=== PATIENT | female | born 1970 | race Caucasian/White ===

== ENCOUNTER → 2017-03-05 | Outpatient (CLI) | payer OTHER ==
[~2017-03-05] MED LIST: BUPR300T49 PO; CHOL500014 PO; KRIL1CAP5 PO; LEVO112T2 PO; LIOT25TA PO; MAGN300C PO; OMEP40CA6 PO; VITA1TAB19 PO
[2017-03-05 14:20] LABS: HEMOGLOBIN 12.9 g/dL (11.7-16.4)
[2017-03-05 14:33] LABS: ASPARTATE AMINO TRANSFERASE 22 U/L (15-37)
== END | disposition home or self-care (01) ==
LOC: LAB 13:54
PROVIDERS: ATTEND Internal Medicine Endocrinology, Diabetes & Metabolism
DX: E03.9 Hypothyroidism, unspecified (principal); R76.8 Other specified abnormal immunological findings in serum
CPT/HCPCS: 36415; 81003; 82040; 82565; 82570; 84156; 84439; 84443; 84450; 84460; 84481; 85025; 86160; 86225; 86235

== ENCOUNTER → 2017-06-02 | Outpatient (CLI) | payer OTHER ==
[2017-06-02 08:28] LABS: ASPARTATE AMINO TRANSFERASE 20 U/L (15-37); BLOOD UREA NITROGEN 12 mg/dL (7-18)
== END | disposition home or self-care (01) ==
LOC: LAB 08:00
PROVIDERS: ATTEND Family Medicine
DX: R53.83 Other fatigue (principal); E78.00 Pure hypercholesterolemia, unspecified
CPT/HCPCS: 36415; 80053; 80061; 82306; 84439; 84443; 84480; 85025

== ENCOUNTER 2017-06-05 17:36 | Emergency (ER) | payer OTHER ==
[~2017-06-05] VITALS: Ht 160 cm; Wt 59.0 kg
[2017-06-05] MEDS ORDERED: SODIUM CHLORIDE 0.9% 1,000 ML IV ONE (18:14)
[2017-06-05] MEDS ORDERED: SODIUM CHLORIDE FLUSH 10ML SYR IVF ONE (18:30)
[2017-06-05] MEDS ORDERED: HYDROmorphone 1 MG/ML, 1ML IVPush PRN (18:30)
[2017-06-05] MEDS ORDERED: ONDANSETRON 2MG/ML, 2ML IVPush ONE (18:30)
[2017-06-05] MEDS ORDERED: SODIUM CHLORIDE 0.9% 1,000ML IVBOLUS ONE ×2 (18:30→19:30)
[2017-06-05] MEDS ORDERED: ONDANSETRON 2MG/ML, 2ML ONE (18:36)
[2017-06-05] MEDS ORDERED: HYDROmorphone 1 MG/ML, 1ML ONE (18:36)
[2017-06-05 18:54] LABS: ASPARTATE AMINO TRANSFERASE 14 U/L (15-37); BLOOD UREA NITROGEN 17 mg/dL (7-18)
[2017-06-05 19:26] LABS: DIFF TOTAL CELLS COUNTED 100 CELL DIFF
[2017-06-05 19:29] LABS: LARGE PLATELETS 1+
[2017-06-05 19:30] LABS: VERIFY COUNTS? YES
[2017-06-05 20:07] VITALS: BP 100/60
== END 2017-06-05 20:13 | disposition home or self-care (01) ==
LOC: ED 19:17
DX: R10.84 Generalized abdominal pain (principal); G43.909 Migraine, unspecified, not intractable, without status migrainosus; Z90.49 Acquired absence of other specified parts of digestive tract
CPT/HCPCS: 36415; 70450; 74022; 80053; 81003; 83690; 84703; 85025; 96361; 96374; 96375; 99285; J1170; J2405; J7030

== ENCOUNTER → 2017-09-02 | Outpatient (CLI) | payer OTHER ==
[~2017-09-02] MED LIST changes: -CHOL500014 PO; +CHOL500045 PO; -LIOT25TA PO; +LIOT25TA10 PO
== END | disposition home or self-care (01) ==
LOC: LAB 08:16
PROVIDERS: ATTEND Internal Medicine Endocrinology, Diabetes & Metabolism
DX: E03.9 Hypothyroidism, unspecified (principal)
CPT/HCPCS: 36415; 82306; 84439; 84443; 84481

== ENCOUNTER → 2017-12-14 | Outpatient (CLI) | payer OTHER ==
[2017-12-14 10:32] LABS: FREE T4 (FREE THYROXINE) 1.13 ng/dL (0.76-1.46); THYROID STIMULATING HORMONE 0.337 mIU/L (0.358-3.740)
== END | disposition home or self-care (01) ==
LOC: LAB 09:58
PROVIDERS: ATTEND Internal Medicine Endocrinology, Diabetes & Metabolism
DX: E03.9 Hypothyroidism, unspecified (principal)
CPT/HCPCS: 36415; 84439; 84443; 84481

== ENCOUNTER → 2017-12-31 | Outpatient (CLI) | payer OTHER | END | disposition home or self-care (01) | LOC: LAB 10:57 | PROVIDERS: ATTEND Obstetrics & Gynecology Gynecology | DX: D39.11 Neoplasm of uncertain behavior of right ovary (principal) | CPT/HCPCS: 36415; 82105; 83615; 86304 ==

== ENCOUNTER → 2018-01-07 | Outpatient (CLI) | payer OTHER ==
[~2018-01-07] MED LIST changes: +ALPR0.25 PO; +DEXL60CA2 PO; +LAMO300T2 PO; +LEVO75TA PO
[2018-01-07 12:28] LABS: BASOPHILS # (AUTO) 0.03 x10^3/uL (0-0.1); BASOPHILS % (AUTO) 1 % (0-1); EOSINOPHILS # (AUTO) 0.13 x10^3/uL (0-0.4); EOSINOPHILS % (AUTO) 2 % (1-7); LYMPHOCYTES # (AUTO) 1.54 x10^3/uL (1-3.4); LYMPHOCYTES % (AUTO) 25 % (22-44); MD NO; MEAN CORPUSCULAR HGB CONC 33.5 g/dL (32.4-35.8); MEAN CORPUSCULAR VOLUME 98.5 fL (80-100); MEAN PLATELET VOLUME 9.5 fL (7.4-10.4); MONOCYTES # (AUTO) 0.48 x10^3/uL (0.2-0.8); MONOCYTES % (AUTO) 8 % (2-9); NEUTROPHILS # (AUTO) 3.88 x10^3/uL (1.8-6.8); NEUTROPHILS % (AUTO) 64 % (42-75); PLATELET COUNT 196 x10^3/uL (130-400); RED BLOOD COUNT 4.03 x10^6/uL (3.82-5.3); RED CELL DISTRIBUTION WIDTH 13.4 % (9.6-15.2)
[2018-01-07 12:32] LABS: INTERNATIONAL NORMALIZED RATIO 0.95 (0.93-1.1); PROTHROMBIN TIME 9.8 Seconds (9.6-11.5)
[2018-01-07 12:39] LABS: CALCIUM 8.9 mg/dL (8.5-10.1); CHLORIDE 105 mmol/L (98-107)
[2018-01-07 12:47] LABS: ALANINE AMINOTRANSFERASE 41 U/L (12-78); ALKALINE PHOSPHATASE 55 U/L (45-117); ANION GAP 5 mmol/L (5-15); BILIRUBIN,TOTAL 0.5 mg/dL (0.2-1.0); CREATININE 1.08 mg/dL (0.55-1.02); TOTAL PROTEIN 7.5 g/dL (6.4-8.2)
== END ==
LOC: STAR 11:17
PROVIDERS: ATTEND Specialist
DX: Z01.818 Encounter for other preprocedural examination (principal); R19.07 Generalized intra-abdominal and pelvic swelling, mass and lump
CPT/HCPCS: 36415; 71046; 80053; 84703; 85025; 85610; 85730; 93005

== ENCOUNTER → 2018-01-07 | Outpatient (CLI) | payer OTHER ==
[~2018-01-07] MED LIST changes: +OMNIPAQUE 350 MG/ML, 100ML BOTTLE ONE
== END | disposition home or self-care (01) ==
LOC: RAD 09:04
PROVIDERS: ATTEND Obstetrics & Gynecology Gynecology
DX: C56.9 Malignant neoplasm of unspecified ovary (principal); R19.00 Intra-abdominal and pelvic swelling, mass and lump, unspecified site; R97.1 Elevated cancer antigen 125 [CA 125]
CPT/HCPCS: 74177; Q9967

== ENCOUNTER 2018-01-09 17:43 | Inpatient (IN) | payer OTHER ==
[~2018-01-09] VITALS: Ht 160 cm; Wt 59.0 kg
[~2018-01-09 17:43] MED LIST changes: -OMNIPAQUE 350 MG/ML, 100ML BOTTLE ONE
[2018-01-09] MEDS ORDERED: GOLYTELY 4,000ML ORAL.SOL PO ONE (18:00)
[2018-01-09 18:19] VITALS: BP 115/77
[2018-01-09 19:07] VITALS: BP 110/67
[2018-01-09] MEDS: MORPHINE SULFATE 4 MG/ML, 1ML IVPush PRN ×3 (19:57→22:30)
[2018-01-09] MEDS: D5%-0.45NACL+KCL 20MEQ 1,000 ML IV SCH (19:57)
[2018-01-09] MEDS: ONDANSETRON 2MG/ML, 2ML IVPush PRN (23:59)
[2018-01-10 01:02] VITALS: BP 102/72
[2018-01-10] MEDS: D5%-0.45NACL+KCL 20MEQ 1,000 ML IV SCH ×2 (03:59→12:32)
[2018-01-10] MEDS ORDERED: morphine SULFATE 10 MG/ML, 1ML ONE (06:09)
[2018-01-10] MEDS: MORPHINE SULFATE 4 MG/ML, 1ML IVPush PRN ×2 (06:13→10:16)
[2018-01-10 07:25] VITALS: BP 101/63
[2018-01-10] MEDS: ONDANSETRON 2MG/ML, 2ML IVPush PRN ×2 (10:16→17:21)
[2018-01-10] MEDS ORDERED: ASA/APAP/ CAFFEINE TABLET PO PRN (11:00)
[2018-01-10] MEDS ORDERED: ACETAMINOPHEN 650 MG/20.3 ML UDC PO PRN (12:00)
[2018-01-10] MEDS ORDERED: ONDANSETRON 2MG/ML, 2ML IVPush ONE (12:00)
[2018-01-10 13:27] VITALS: BP 118/78
[2018-01-10] MEDS ORDERED: EPINEPHRINE 1 MG/ML, 1ML ONE (18:50)
[2018-01-10] MEDS ORDERED: BUPIVACAINE/PF 0.5% ONE (18:50)
[2018-01-10] MEDS ORDERED: HEPARIN 1,000 UNITS/ML, 10ML ONE (18:50)
[2018-01-10] MEDS ORDERED: LIDOCAINE 4%, 4 ML SYR/CANN TP ONE (18:58)
[2018-01-10] MEDS ORDERED: CEFOTETAN PMX 2GM/50ML 50 ML IVPB ONE (18:58)
[2018-01-10] MEDS ORDERED: PROPOFOL 10 MG/ML, 20ML ONE (18:58)
[2018-01-10] MEDS ORDERED: SUCCINYLCHOLINE 20 MG/ML, 10ML ONE (18:58)
[2018-01-10] MEDS ORDERED: ROCURONIUM 10 MG/ML,10ML ONE (18:58)
[2018-01-10] MEDS ORDERED: OXYcodone 5 MG/5 ML ORAL.SOL UDC PO PRN (20:00)
[2018-01-10] MEDS ORDERED: ACETAMINOPHEN 325 MG TABLET PO PRN (20:00)
[2018-01-10] MEDS ORDERED: ONDANSETRON 2MG/ML, 2ML IVPush PRN (20:00)
[2018-01-10] MEDS ORDERED: HYDROcodone/APAP 7.5-325MG/15ML UDC PO PRN (20:00)
[2018-01-10] MEDS ORDERED: MENING VAC A,C,Y,W-135 DIP/PF (MENACTRA AGES 2-55) 0.5 ML IM-VACC ONE (20:30)
[2018-01-10] MEDS ORDERED: **MANDATORY - MENING,PNEU,HAEMOPH- PICK 1 OF EACH MC PRN (20:30)
[2018-01-10] MEDS ORDERED: PNEUMOC 13-VALENT VACC, 0.5 ML IM-VACC ONE (20:30)
[2018-01-10] MEDS ORDERED: DIPHTHERIA-TETANUS ADULT 0.5ML IM-VACC ONE (20:30)
[2018-01-10] MEDS ORDERED: HAEMOPH B POLY CONJ-TET TOX/PF 10 MCG/0.5 ML INJ IM-VACC ONE (20:30)
[2018-01-10] MEDS ORDERED: FLU VACC QS2017-18 (36MOS+) UP/PF 0.5 ML IM-VACC ONE (20:30)
[2018-01-10] MEDS: HYDROmorphone 5 MG, BUPIVACAINE/PF 0.5%, 30ML 62.5 ML in SODIUM CHLORIDE 0.9% 182.5 ML EPIDCONT SCH (21:00)
[2018-01-10] MEDS ORDERED: MEASLES,MUMPS&RUBELLA VACC/PF 0.5 ML SQ-VACC ONE (21:00)
[2018-01-10] MEDS ORDERED: [UNRECOGNIZED DRUG - OTHER] IM ONE (21:00)
[2018-01-10] MEDS ORDERED: THROMBIN 5,000 UNIT VIAL TP ONE (21:10)
[2018-01-10] MEDS ORDERED: THROMBIN 20,000 UNIT VIAL TP ONE (21:37)
[2018-01-10] MEDS ORDERED: DO NOT GIVE MC SCH (22:30)
[2018-01-10] MEDS ORDERED: EPHEDRINE 50 MG/ML, 1ML IVPush PRN (22:30)
[2018-01-10] MEDS ORDERED: NALBUPHINE 10 MG/ML, 1ML IV PRN (22:30)
[2018-01-10] MEDS ORDERED: NALOXONE 0.4 MG/ML, 1ML IV PRN (22:30)
[2018-01-10 23:34] LABS: BASOPHILS % (AUTO) 0 % (0-1); EOSINOPHILS # (AUTO) 0.02 x10^3/uL (0-0.4); EOSINOPHILS % (AUTO) 0 % (1-7); LYMPHOCYTES # (AUTO) 0.63 x10^3/uL (1-3.4); LYMPHOCYTES % (AUTO) 10 % (22-44); MD NO; MEAN CORPUSCULAR HEMOGLOBIN 33.4 pg (27.0-34.8); MEAN CORPUSCULAR HGB CONC 33.9 g/dL (32.4-35.8); MEAN CORPUSCULAR VOLUME 98.6 fL (80-100); MEAN PLATELET VOLUME 9.5 fL (7.4-10.4); MONOCYTES # (AUTO) 0.22 x10^3/uL (0.2-0.8); MONOCYTES % (AUTO) 3 % (2-9); NEUTROPHILS # (AUTO) 5.68 x10^3/uL (1.8-6.8); NEUTROPHILS % (AUTO) 87 % (42-75); PLATELET COUNT 138 x10^3/uL (130-400); RED BLOOD COUNT 2.36 x10^6/uL (3.82-5.3); RED CELL DISTRIBUTION WIDTH 13.6 % (9.6-15.2)
[2018-01-10 23:39] LABS: INTERNATIONAL NORMALIZED RATIO 1.45 (0.93-1.1); PROTHROMBIN TIME 14.8 Seconds (9.6-11.5)
[2018-01-10] MEDS ORDERED: ALBUMIN HUMAN 5% 500 ML ONE (23:52)
[2018-01-11] MEDS ORDERED: D5%-0.45NACL+KCL 20MEQ 1,000 ML IV SCH
[2018-01-11] MEDS ORDERED: SODIUM CHLORIDE 0.9% 1,000ML IVBOLUS ONE (00:30)
[2018-01-11] MEDS: HYDROmorphone 5 MG, BUPIVACAINE/PF 0.5%, 30ML 62.5 ML in SODIUM CHLORIDE 0.9% 182.5 ML EPIDCONT SCH ×3 (00:30→22:35)
[2018-01-11 00:34] LABS: BASOPHILS # (AUTO) 0.01 x10^3/uL (0-0.1); BASOPHILS % (AUTO) 0 % (0-1); EOSINOPHILS % (AUTO) 0 % (1-7); LYMPHOCYTES # (AUTO) 0.79 x10^3/uL (1-3.4); LYMPHOCYTES % (AUTO) 13 % (22-44); MD NO; MEAN CORPUSCULAR HEMOGLOBIN 33.1 pg (27.0-34.8); MEAN CORPUSCULAR HGB CONC 33.7 g/dL (32.4-35.8); MEAN CORPUSCULAR VOLUME 98.1 fL (80-100); MEAN PLATELET VOLUME 8.8 fL (7.4-10.4); MONOCYTES # (AUTO) 0.23 x10^3/uL (0.2-0.8); MONOCYTES % (AUTO) 4 % (2-9); NEUTROPHILS # (AUTO) 5.15 x10^3/uL (1.8-6.8); NEUTROPHILS % (AUTO) 83 % (42-75); PLATELET COUNT 127 x10^3/uL (130-400); RED CELL DISTRIBUTION WIDTH 13.5 % (9.6-15.2)
[2018-01-11] MEDS ORDERED: FENTANYL PF 100 MCG/2ML ONE ×3 (00:34→01:44)
[2018-01-11] MEDS: FENTANYL PF 100 MCG/2ML IV PRN ×4 (00:35→01:46)
[2018-01-11 00:47] LABS: ALBUMIN 2.1 g/dL (3.4-5.0); ANION GAP 9 mmol/L (5-15); CALCIUM 6.1 mg/dL (8.5-10.1); CHLORIDE 113 mmol/L (98-107)
[2018-01-11 00:51] LABS: ALANINE AMINOTRANSFERASE 198 U/L (12-78); ALKALINE PHOSPHATASE 23 U/L (45-117); BILIRUBIN,TOTAL 0.4 mg/dL (0.2-1.0); CREATININE 0.89 mg/dL (0.55-1.02); TOTAL PROTEIN 3.4 g/dL (6.4-8.2)
[2018-01-11] MEDS ORDERED: CALCIUM GLUCONATE 4.6 MEQ in SODIUM CHLORIDE 0.9% 50 ML IV ONE (01:30)
[2018-01-11] MEDS ORDERED: MAGNESIUM SULFATE PMX 4GM/100M 100 ML IV ONE (01:30)
[2018-01-11] MEDS ORDERED: HYDROmorphone 2 MG/ML, 1ML ONE (01:55)
[2018-01-11] MEDS: HYDROmorphone 1 MG/ML, 1ML IV PRN ×2 (01:59→02:10)
[2018-01-11] MEDS ORDERED: ALBUMIN HUMAN 5% 500 ML IV ONE (02:00)
[2018-01-11] MEDS ORDERED: ONDANSETRON 2MG/ML, 2ML ONE (02:01)
[2018-01-11 02:45] VITALS: BP 93/56
[2018-01-11 07:28] VITALS: BP 82/47
[2018-01-11] MEDS ORDERED: KETOROLAC 30 MG/1 ML ONE (08:26)
[2018-01-11] MEDS: ONDANSETRON 2MG/ML, 2ML IVPush PRN ×3 (08:34→23:22)
[2018-01-11] MEDS: D5%-0.45NACL+KCL 20MEQ 1,000 ML IV SCH ×3 (09:14→23:22)
[2018-01-11] MEDS: KETOROLAC 30 MG/1 ML IVPush PRN ×3 (09:14→22:47)
[2018-01-11 09:37] LABS: ALANINE AMINOTRANSFERASE 221 U/L (12-78); ALBUMIN 2.7 g/dL (3.4-5.0); ANION GAP 5 mmol/L (5-15); CALCIUM 6.7 mg/dL (8.5-10.1); CHLORIDE 110 mmol/L (98-107); CREATININE 0.83 mg/dL (0.55-1.02)
[2018-01-11 09:39] LABS: ALKALINE PHOSPHATASE 22 U/L (45-117); BILIRUBIN,TOTAL 0.4 mg/dL (0.2-1.0); TOTAL PROTEIN 4.2 g/dL (6.4-8.2)
[2018-01-11] MEDS: ALBUMIN HUMAN 5% 500 ML IV SCH ×2 (10:45→20:26)
[2018-01-11] MEDS: MORPHINE SULFATE 4 MG/ML, 1ML IVPush PRN ×3 (11:30→23:22)
[2018-01-11 11:34] VITALS: BP 82/44
[2018-01-11] MEDS: FENTANYL PF 100 MCG/2ML EPIDPUSH PRN (13:57)
[2018-01-11 13:59] VITALS: BP 82/45
[2018-01-11 14:48] LABS: MEAN CORPUSCULAR HEMOGLOBIN 32.8 pg (27.0-34.8); MEAN CORPUSCULAR HGB CONC 33.2 g/dL (32.4-35.8); MEAN CORPUSCULAR VOLUME 98.9 fL (80-100); MEAN PLATELET VOLUME 9.9 fL (7.4-10.4); PLATELET COUNT 147 x10^3/uL (130-400); RED BLOOD COUNT 2.57 x10^6/uL (3.82-5.3)
[2018-01-11 14:57] LABS: BASOPHILS % (AUTO) 0 % (0-1); EOSINOPHILS % (AUTO) 0 % (1-7); LYMPHOCYTES # (AUTO) 0.42 x10^3/uL (1-3.4); LYMPHOCYTES % (AUTO) 5 % (22-44); MD NO; MONOCYTES # (AUTO) 0.27 x10^3/uL (0.2-0.8); MONOCYTES % (AUTO) 3 % (2-9); NEUTROPHILS # (AUTO) 7.11 x10^3/uL (1.8-6.8); NEUTROPHILS % (AUTO) 91 % (42-75)
[2018-01-11] MEDS ORDERED: PROCHLORPERAZINE 5 MG/ML, 2ML ONE (18:23)
[2018-01-11] MEDS ORDERED: PROCHLORPERAZINE 5 MG/ML, 2ML IVPush ONE (18:30)
[2018-01-11 20:00] VITALS: BP 92/49
[2018-01-11 23:14] VITALS: BP 101/56
[2018-01-12] VITALS (7 sets, daily range): BP systolic 93–101; BP diastolic 52–63
[2018-01-12] MEDS: FENTANYL PF 100 MCG/2ML EPIDPUSH PRN ×2 (02:20→06:44)
[2018-01-12] MEDS: ONDANSETRON 2MG/ML, 2ML IVPush PRN ×2 (04:58→16:28)
[2018-01-12] MEDS: KETOROLAC 30 MG/1 ML IVPush PRN ×4 (04:58→21:51)
[2018-01-12] MEDS: D5%-0.45NACL+KCL 20MEQ 1,000 ML IV SCH ×2 (05:03→16:28)
[2018-01-12] MEDS: MORPHINE SULFATE 4 MG/ML, 1ML IVPush PRN ×3 (05:36→20:35)
[2018-01-12 05:59] LABS: CHLORIDE 112 mmol/L (98-107)
[2018-01-12 06:08] LABS: ANION GAP 6 mmol/L (5-15); CALCIUM 7.1 mg/dL (8.5-10.1); CREATININE 0.73 mg/dL (0.55-1.02)
[2018-01-12 06:27] LABS: MEAN CORPUSCULAR HEMOGLOBIN 32.9 pg (27.0-34.8); MEAN CORPUSCULAR HGB CONC 33.3 g/dL (32.4-35.8); MEAN CORPUSCULAR VOLUME 98.9 fL (80-100); MEAN PLATELET VOLUME 9.9 fL (7.4-10.4); PLATELET COUNT 148 x10^3/uL (130-400); RED BLOOD COUNT 2.08 x10^6/uL (3.82-5.3); RED CELL DISTRIBUTION WIDTH 13.4 % (9.6-15.2)
[2018-01-12] MEDS: ALBUMIN HUMAN 5% 500 ML IV SCH (06:29)
[2018-01-12 06:46] LABS: BASOPHILS # (AUTO) 0.02 x10^3/uL (0-0.1); BASOPHILS % (AUTO) 0 % (0-1); EOSINOPHILS # (AUTO) 0.03 x10^3/uL (0-0.4); EOSINOPHILS % (AUTO) 0 % (1-7); LYMPHOCYTES # (AUTO) 0.83 x10^3/uL (1-3.4); LYMPHOCYTES % (AUTO) 10 % (22-44); MD SCAN; MONOCYTES # (AUTO) 0.61 x10^3/uL (0.2-0.8); MONOCYTES % (AUTO) 7 % (2-9); NEUTROPHILS # (AUTO) 6.86 x10^3/uL (1.8-6.8); NEUTROPHILS % (AUTO) 82 % (42-75)
[2018-01-12] MEDS: LAMOTRIGINE 200 MG TABLET PO SCH (08:04)
[2018-01-12] MEDS ORDERED: HYDROmorphone 1 MG/ML, 1ML EPIDPUSH PRN (10:00)
[2018-01-12] MEDS ORDERED: FENTANYL PF 100 MCG/2ML ONE (10:08)
[2018-01-12] MEDS: LIOTHYRONINE 25 MCG TABLET PO SCH (10:30)
[2018-01-12] MEDS ORDERED: DIPHENHYDRAMINE 25 MG CAPSULE PO ONE (10:30)
[2018-01-12] MEDS ORDERED: LEVOTHYROXINE 75 MCG TABLET ONE (10:48)
[2018-01-12] MEDS: LORazepam 2 MG/ML, 1ML IVPush PRN ×2 (12:13→18:35)
[2018-01-13] MEDS: MORPHINE SULFATE 4 MG/ML, 1ML IVPush PRN ×4 (00:25→20:41)
[2018-01-13] MEDS: LORazepam 2 MG/ML, 1ML IVPush PRN ×4 (00:25→18:26)
[2018-01-13] MEDS: HYDROmorphone 5 MG, BUPIVACAINE/PF 0.5%, 30ML 62.5 ML in SODIUM CHLORIDE 0.9% 182.5 ML EPIDCONT SCH (01:29)
[2018-01-13 02:00] VITALS: BP 106/62
[2018-01-13] MEDS: KETOROLAC 30 MG/1 ML IVPush PRN ×4 (03:30→22:18)
[2018-01-13] MEDS: FENTANYL PF 100 MCG/2ML EPIDPUSH PRN ×4 (03:58→12:41)
[2018-01-13] MEDS: LEVOTHYROXINE 75 MCG TABLET PO SCH (05:23)
[2018-01-13] MEDS: D5%-0.45NACL+KCL 20MEQ 1,000 ML IV SCH ×2 (05:23→17:05)
[2018-01-13 05:53] LABS: ANION GAP 4 mmol/L (5-15); CALCIUM 7.7 mg/dL (8.5-10.1); CHLORIDE 111 mmol/L (98-107); CREATININE 0.64 mg/dL (0.55-1.02)
[2018-01-13 06:03] LABS: BASOPHILS # (AUTO) 0.03 x10^3/uL (0-0.1); BASOPHILS % (AUTO) 0 % (0-1); EOSINOPHILS # (AUTO) 0.13 x10^3/uL (0-0.4); EOSINOPHILS % (AUTO) 2 % (1-7); LYMPHOCYTES # (AUTO) 0.54 x10^3/uL (1-3.4); LYMPHOCYTES % (AUTO) 6 % (22-44); MD NO; MEAN CORPUSCULAR HEMOGLOBIN 32.9 pg (27.0-34.8); MEAN CORPUSCULAR HGB CONC 34.1 g/dL (32.4-35.8); MEAN CORPUSCULAR VOLUME 96.4 fL (80-100); MEAN PLATELET VOLUME 8.8 fL (7.4-10.4); MONOCYTES # (AUTO) 0.67 x10^3/uL (0.2-0.8); MONOCYTES % (AUTO) 7 % (2-9); NEUTROPHILS # (AUTO) 7.77 x10^3/uL (1.8-6.8); NEUTROPHILS % (AUTO) 85 % (42-75); PLATELET COUNT 172 x10^3/uL (130-400); RED BLOOD COUNT 2.49 x10^6/uL (3.82-5.3); RED CELL DISTRIBUTION WIDTH 14.6 % (9.6-15.2)
[2018-01-13 08:47] VITALS: BP 115/71
[2018-01-13] MEDS: LIOTHYRONINE 25 MCG TABLET PO SCH (09:23)
[2018-01-13] MEDS: LAMOTRIGINE 200 MG TABLET PO SCH (09:24)
[2018-01-13 16:29] VITALS: BP 106/60
[2018-01-13 19:10] VITALS: BP 117/71
[2018-01-14] MEDS: D5%-0.45NACL+KCL 20MEQ 1,000 ML IV SCH ×3 (00:55→20:34)
[2018-01-14 01:07] VITALS: BP 114/67
[2018-01-14] MEDS: MORPHINE SULFATE 4 MG/ML, 1ML IVPush PRN ×4 (04:22→23:33)
[2018-01-14] MEDS: LEVOTHYROXINE 75 MCG TABLET PO SCH (05:00)
[2018-01-14] MEDS: LORazepam 2 MG/ML, 1ML IVPush PRN ×4 (05:00→19:30)
[2018-01-14 05:25] LABS: ANION GAP 5 mmol/L (5-15); CALCIUM 7.6 mg/dL (8.5-10.1); CHLORIDE 110 mmol/L (98-107); CREATININE 0.55 mg/dL (0.55-1.02)
[2018-01-14 05:38] LABS: BASOPHILS # (AUTO) 0.05 x10^3/uL (0-0.1); BASOPHILS % (AUTO) 1 % (0-1); EOSINOPHILS # (AUTO) 0.13 x10^3/uL (0-0.4); EOSINOPHILS % (AUTO) 2 % (1-7); LYMPHOCYTES # (AUTO) 0.74 x10^3/uL (1-3.4); LYMPHOCYTES % (AUTO) 9 % (22-44); MD NO; MEAN CORPUSCULAR HEMOGLOBIN 32.6 pg (27.0-34.8); MEAN CORPUSCULAR HGB CONC 34.2 g/dL (32.4-35.8); MEAN CORPUSCULAR VOLUME 95.5 fL (80-100); MEAN PLATELET VOLUME 8.8 fL (7.4-10.4); MONOCYTES # (AUTO) 0.56 x10^3/uL (0.2-0.8); MONOCYTES % (AUTO) 7 % (2-9); NEUTROPHILS # (AUTO) 6.75 x10^3/uL (1.8-6.8); NEUTROPHILS % (AUTO) 82 % (42-75); PLATELET COUNT 246 x10^3/uL (130-400); RED BLOOD COUNT 2.66 x10^6/uL (3.82-5.3); RED CELL DISTRIBUTION WIDTH 14.4 % (9.6-15.2)
[2018-01-14 07:00] VITALS: BP 153/74
[2018-01-14] MEDS: LIOTHYRONINE 25 MCG TABLET PO SCH (07:26)
[2018-01-14] MEDS: LAMOTRIGINE 200 MG TABLET PO SCH (07:26)
[2018-01-14] MEDS: FENTANYL PF 100 MCG/2ML EPIDPUSH PRN (07:37)
[2018-01-14] MEDS: HYDROmorphone 5 MG, BUPIVACAINE/PF 0.5%, 30ML 62.5 ML in SODIUM CHLORIDE 0.9% 182.5 ML EPIDCONT SCH (08:00)
[2018-01-14] MEDS: KETOROLAC 30 MG/1 ML IVPush PRN ×3 (09:14→23:33)
[2018-01-14] MEDS ORDERED: LORazepam 2 MG/ML, 1ML IVPush PRN (12:00)
[2018-01-14] MEDS: OXYcodone/APAP 7.5/325MG TABLET PO PRN ×3 (12:21→19:30)
[2018-01-14 12:50] VITALS: BP 112/78
[2018-01-14 18:58] VITALS: BP 111/75
[2018-01-15 00:37] VITALS: BP 101/70
[2018-01-15] MEDS: LORazepam 2 MG/ML, 1ML IVPush PRN ×4 (02:00→20:22)
[2018-01-15] MEDS: LEVOTHYROXINE 75 MCG TABLET PO SCH (04:34)
[2018-01-15] MEDS: MORPHINE SULFATE 4 MG/ML, 1ML IVPush PRN ×3 (04:34→16:55)
[2018-01-15] MEDS: LIOTHYRONINE 25 MCG TABLET PO SCH (04:34)
[2018-01-15 04:49] LABS: ANION GAP 6 mmol/L (5-15); CALCIUM 8.2 mg/dL (8.5-10.1); CHLORIDE 112 mmol/L (98-107); CREATININE 0.69 mg/dL (0.55-1.02)
[2018-01-15 04:55] LABS: BASOPHILS # (AUTO) 0.02 x10^3/uL (0-0.1); BASOPHILS % (AUTO) 0 % (0-1); EOSINOPHILS # (AUTO) 0.28 x10^3/uL (0-0.4); EOSINOPHILS % (AUTO) 5 % (1-7); LYMPHOCYTES # (AUTO) 0.78 x10^3/uL (1-3.4); LYMPHOCYTES % (AUTO) 13 % (22-44); MD NO; MEAN CORPUSCULAR HEMOGLOBIN 32.4 pg (27.0-34.8); MEAN CORPUSCULAR HGB CONC 33.4 g/dL (32.4-35.8); MEAN CORPUSCULAR VOLUME 96.8 fL (80-100); MEAN PLATELET VOLUME 8.1 fL (7.4-10.4); MONOCYTES # (AUTO) 0.69 x10^3/uL (0.2-0.8); MONOCYTES % (AUTO) 11 % (2-9); NEUTROPHILS # (AUTO) 4.31 x10^3/uL (1.8-6.8); NEUTROPHILS % (AUTO) 71 % (42-75); PLATELET COUNT 343 x10^3/uL (130-400); RED BLOOD COUNT 2.91 x10^6/uL (3.82-5.3); RED CELL DISTRIBUTION WIDTH 14.4 % (9.6-15.2)
[2018-01-15] MEDS: LAMOTRIGINE 200 MG TABLET PO SCH (05:00)
[2018-01-15] MEDS: OXYcodone/APAP 7.5/325MG TABLET PO PRN ×3 (06:35→18:23)
[2018-01-15 07:54] VITALS: BP 109/74
[2018-01-15] MEDS: D5%-0.45NACL+KCL 20MEQ 1,000 ML IV SCH ×2 (08:01→18:23)
[2018-01-15] MEDS: KETOROLAC 30 MG/1 ML IVPush PRN ×3 (11:29→23:31)
[2018-01-15 13:00] VITALS: BP 110/76
[2018-01-15 13:11] VITALS: BP 112/62
[2018-01-15] MEDS: HYDROmorphone 2MG TABLET PO PRN ×2 (18:46→22:37)
[2018-01-15 20:23] VITALS: BP 110/78
[2018-01-16] MEDS: HYDROmorphone 2MG TABLET PO PRN ×8 (00:56→21:20)
[2018-01-16 01:05] VITALS: BP 111/74
[2018-01-16] MEDS: D5%-0.45NACL+KCL 20MEQ 1,000 ML IV SCH ×3 (01:58→18:24)
[2018-01-16] MEDS: LORazepam 2 MG/ML, 1ML IVPush PRN ×3 (02:33→20:17)
[2018-01-16 04:51] LABS: BASOPHILS # (AUTO) 0.02 x10^3/uL (0-0.1); BASOPHILS % (AUTO) 0 % (0-1); EOSINOPHILS # (AUTO) 0.28 x10^3/uL (0-0.4); EOSINOPHILS % (AUTO) 4 % (1-7); LYMPHOCYTES # (AUTO) 0.76 x10^3/uL (1-3.4); LYMPHOCYTES % (AUTO) 11 % (22-44); MD NO; MEAN CORPUSCULAR HEMOGLOBIN 32.6 pg (27.0-34.8); MEAN CORPUSCULAR HGB CONC 33.7 g/dL (32.4-35.8); MEAN CORPUSCULAR VOLUME 96.7 fL (80-100); MEAN PLATELET VOLUME 8.1 fL (7.4-10.4); MONOCYTES # (AUTO) 0.87 x10^3/uL (0.2-0.8); MONOCYTES % (AUTO) 13 % (2-9); NEUTROPHILS # (AUTO) 4.74 x10^3/uL (1.8-6.8); NEUTROPHILS % (AUTO) 71 % (42-75); PLATELET COUNT 397 x10^3/uL (130-400); RED BLOOD COUNT 2.84 x10^6/uL (3.82-5.3)
[2018-01-16 05:00] LABS: ANION GAP 6 mmol/L (5-15); CALCIUM 8.2 mg/dL (8.5-10.1); CHLORIDE 111 mmol/L (98-107); CREATININE 0.75 mg/dL (0.55-1.02)
[2018-01-16] MEDS: KETOROLAC 30 MG/1 ML IVPush PRN (05:00)
[2018-01-16] MEDS: LEVOTHYROXINE 75 MCG TABLET PO SCH (05:00)
[2018-01-16 07:25] VITALS: BP 114/78
[2018-01-16] MEDS: LAMOTRIGINE 200 MG TABLET PO SCH (08:18)
[2018-01-16] MEDS: MORPHINE SULFATE 4 MG/ML, 1ML IVPush PRN ×3 (08:18→20:08)
[2018-01-16] MEDS: LIOTHYRONINE 25 MCG TABLET PO SCH (08:18)
[2018-01-16 12:54] VITALS: BP 121/74
[2018-01-16] MEDS ORDERED: KETOROLAC 30 MG/1 ML IVPush ONE (13:30)
[2018-01-16 20:00] VITALS: BP 109/73
[2018-01-17] MEDS: HYDROmorphone 2MG TABLET PO PRN ×3 (00:27→07:23)
[2018-01-17 01:19] VITALS: BP 114/77
[2018-01-17] MEDS: MORPHINE SULFATE 4 MG/ML, 1ML IVPush PRN ×6 (01:19→22:22)
[2018-01-17] MEDS: LORazepam 2 MG/ML, 1ML IVPush PRN ×4 (01:46→20:19)
[2018-01-17] MEDS: D5%-0.45NACL+KCL 20MEQ 1,000 ML IV SCH ×3 (03:45→20:19)
[2018-01-17 04:38] LABS: BASOPHILS # (AUTO) 0.02 x10^3/uL (0-0.1); BASOPHILS % (AUTO) 0 % (0-1); EOSINOPHILS # (AUTO) 0.32 x10^3/uL (0-0.4); EOSINOPHILS % (AUTO) 4 % (1-7); LYMPHOCYTES # (AUTO) 0.83 x10^3/uL (1-3.4); LYMPHOCYTES % (AUTO) 11 % (22-44); MD NO; MEAN CORPUSCULAR HEMOGLOBIN 32.5 pg (27.0-34.8); MEAN CORPUSCULAR HGB CONC 33.8 g/dL (32.4-35.8); MEAN CORPUSCULAR VOLUME 96.3 fL (80-100); MEAN PLATELET VOLUME 8.1 fL (7.4-10.4); MONOCYTES # (AUTO) 1.03 x10^3/uL (0.2-0.8); MONOCYTES % (AUTO) 13 % (2-9); NEUTROPHILS # (AUTO) 5.73 x10^3/uL (1.8-6.8); NEUTROPHILS % (AUTO) 72 % (42-75); PLATELET COUNT 465 x10^3/uL (130-400); RED BLOOD COUNT 2.87 x10^6/uL (3.82-5.3); RED CELL DISTRIBUTION WIDTH 14.1 % (9.6-15.2)
[2018-01-17 04:49] LABS: ANION GAP 6 mmol/L (5-15); CHLORIDE 109 mmol/L (98-107)
[2018-01-17] MEDS: LEVOTHYROXINE 75 MCG TABLET PO SCH (05:20)
[2018-01-17 07:45] VITALS: BP 107/72
[2018-01-17] MEDS: LAMOTRIGINE 200 MG TABLET PO SCH (07:57)
[2018-01-17] MEDS: LIOTHYRONINE 25 MCG TABLET PO SCH (07:57)
[2018-01-17] MEDS ORDERED: OXYcodone/APAP 10/325MG TABLET ONE (08:20)
[2018-01-17] MEDS: OXYcodone/APAP 10/325MG TABLET PO SCH ×4 (08:23→20:18)
[2018-01-17] MEDS ORDERED: OXYcodone/APAP 10/325MG TABLET PO PRN (08:30)
[2018-01-17 14:01] VITALS: BP 107/73
[2018-01-17 19:29] VITALS: BP_SYST 112; BP_SYST 135; BP_DIAS 70; BP_DIAS 85
[2018-01-18] MEDS: OXYcodone/APAP 10/325MG TABLET PO SCH ×6 (00:53→20:18)
[2018-01-18] MEDS: LORazepam 2 MG/ML, 1ML IVPush PRN ×4 (02:26→20:18)
[2018-01-18 04:02] VITALS: BP 94/53
[2018-01-18 04:25] LABS: BASOPHILS # (AUTO) 0.02 x10^3/uL (0-0.1); BASOPHILS % (AUTO) 0 % (0-1); EOSINOPHILS # (AUTO) 0.42 x10^3/uL (0-0.4); EOSINOPHILS % (AUTO) 5 % (1-7); LYMPHOCYTES # (AUTO) 1.29 x10^3/uL (1-3.4); LYMPHOCYTES % (AUTO) 16 % (22-44); MD NO; MEAN CORPUSCULAR HEMOGLOBIN 32.5 pg (27.0-34.8); MEAN CORPUSCULAR HGB CONC 33.3 g/dL (32.4-35.8); MEAN CORPUSCULAR VOLUME 97.5 fL (80-100); MEAN PLATELET VOLUME 7.8 fL (7.4-10.4); MONOCYTES # (AUTO) 1.18 x10^3/uL (0.2-0.8); MONOCYTES % (AUTO) 15 % (2-9); NEUTROPHILS # (AUTO) 4.95 x10^3/uL (1.8-6.8); NEUTROPHILS % (AUTO) 63 % (42-75); PLATELET COUNT 510 x10^3/uL (130-400); RED BLOOD COUNT 2.89 x10^6/uL (3.82-5.3); RED CELL DISTRIBUTION WIDTH 14.2 % (9.6-15.2)
[2018-01-18 04:36] LABS: ANION GAP 6 mmol/L (5-15); CALCIUM 8.3 mg/dL (8.5-10.1); CHLORIDE 108 mmol/L (98-107)
[2018-01-18 04:37] LABS: CREATININE 0.77 mg/dL (0.55-1.02)
[2018-01-18] MEDS: LEVOTHYROXINE 75 MCG TABLET PO SCH (04:52)
[2018-01-18] MEDS: D5%-0.45NACL+KCL 20MEQ 1,000 ML IV SCH ×3 (04:52→20:18)
[2018-01-18 07:06] VITALS: BP 96/63
[2018-01-18] MEDS: LIOTHYRONINE 25 MCG TABLET PO SCH (08:34)
[2018-01-18] MEDS: LAMOTRIGINE 200 MG TABLET PO SCH (08:35)
[2018-01-18] MEDS ORDERED: HYDROCORTISONE CRM 1%, 30GM TP PRN (10:00)
[2018-01-18 13:10] VITALS: BP 103/68
[2018-01-18 19:44] VITALS: BP 96/59
[2018-01-18] MEDS: MORPHINE SULFATE 4 MG/ML, 1ML IVPush PRN (23:29)
[2018-01-19] MEDS: OXYcodone/APAP 10/325MG TABLET PO SCH ×6 (00:15→20:20)
[2018-01-19 01:18] VITALS: BP 104/62
[2018-01-19] MEDS: LORazepam 2 MG/ML, 1ML IVPush PRN ×4 (02:19→22:20)
[2018-01-19] MEDS: D5%-0.45NACL+KCL 20MEQ 1,000 ML IV SCH ×3 (04:20→20:21)
[2018-01-19] MEDS: LEVOTHYROXINE 75 MCG TABLET PO SCH (06:37)
[2018-01-19 08:02] VITALS: BP 94/58
[2018-01-19] MEDS: LIOTHYRONINE 25 MCG TABLET PO SCH (09:24)
[2018-01-19] MEDS: LAMOTRIGINE 200 MG TABLET PO SCH (09:25)
[2018-01-19 13:48] VITALS: BP 96/63
[2018-01-19 19:42] VITALS: BP 100/62
[2018-01-20] MEDS: OXYcodone/APAP 10/325MG TABLET PO SCH ×6 (00:15→21:35)
[2018-01-20 01:35] VITALS: BP 98/63
[2018-01-20] MEDS: LORazepam 2 MG/ML, 1ML IVPush PRN ×3 (04:48→21:35)
[2018-01-20] MEDS: LEVOTHYROXINE 75 MCG TABLET PO SCH (04:48)
[2018-01-20] MEDS: D5%-0.45NACL+KCL 20MEQ 1,000 ML IV SCH ×2 (04:50→16:14)
[2018-01-20] MEDS: LIOTHYRONINE 25 MCG TABLET PO SCH (08:29)
[2018-01-20] MEDS: LAMOTRIGINE 200 MG TABLET PO SCH (08:29)
[2018-01-20 08:30] VITALS: BP 98/67
[2018-01-20 14:30] VITALS: BP 91/57
[2018-01-20 19:37] VITALS: BP 95/63
[2018-01-20] MEDS: MORPHINE SULFATE 4 MG/ML, 1ML IVPush PRN (19:37)
[2018-01-21 01:06] VITALS: BP 102/67
[2018-01-21] MEDS: OXYcodone/APAP 10/325MG TABLET PO SCH ×6 (01:36→21:35)
[2018-01-21] MEDS: D5%-0.45NACL+KCL 20MEQ 1,000 ML IV SCH ×3 (01:36→15:38)
[2018-01-21] MEDS: LORazepam 2 MG/ML, 1ML IVPush PRN ×3 (05:14→19:35)
[2018-01-21] MEDS: LEVOTHYROXINE 75 MCG TABLET PO SCH (05:14)
[2018-01-21] MEDS: LAMOTRIGINE 200 MG TABLET PO SCH (08:14)
[2018-01-21] MEDS: LIOTHYRONINE 25 MCG TABLET PO SCH (08:14)
[2018-01-21 08:27] VITALS: BP 109/72
[2018-01-21 14:01] VITALS: BP 96/60
[2018-01-21 19:00] VITALS: BP 111/76
[2018-01-22 00:36] VITALS: BP 102/67
[2018-01-22] MEDS: OXYcodone/APAP 10/325MG TABLET PO SCH ×4 (01:37→13:17)
[2018-01-22] MEDS: LORazepam 2 MG/ML, 1ML IVPush PRN ×2 (01:38→10:27)
[2018-01-22] MEDS: LEVOTHYROXINE 75 MCG TABLET PO SCH (05:29)
[2018-01-22] MEDS: D5%-0.45NACL+KCL 20MEQ 1,000 ML IV SCH (05:30)
[2018-01-22 08:26] VITALS: BP 96/68
[2018-01-22 08:36] LABS: BASOPHILS # (AUTO) 0.04 x10^3/uL (0-0.1); BASOPHILS % (AUTO) 1 % (0-1); EOSINOPHILS % (AUTO) 2 % (1-7); LYMPHOCYTES # (AUTO) 1.66 x10^3/uL (1-3.4); LYMPHOCYTES % (AUTO) 20 % (22-44); MD NO; MEAN CORPUSCULAR HEMOGLOBIN 31.4 pg (27.0-34.8); MEAN CORPUSCULAR HGB CONC 32.6 g/dL (32.4-35.8); MEAN CORPUSCULAR VOLUME 96.5 fL (80-100); MEAN PLATELET VOLUME 7.8 fL (7.4-10.4); MONOCYTES % (AUTO) 12 % (2-9); NEUTROPHILS # (AUTO) 5.56 x10^3/uL (1.8-6.8); NEUTROPHILS % (AUTO) 66 % (42-75); PLATELET COUNT 860 x10^3/uL (130-400); RED BLOOD COUNT 3.42 x10^6/uL (3.82-5.3); RED CELL DISTRIBUTION WIDTH 13.9 % (9.6-15.2)
[2018-01-22] MEDS: LAMOTRIGINE 200 MG TABLET PO SCH (08:46)
[2018-01-22] MEDS: LIOTHYRONINE 25 MCG TABLET PO SCH (08:46)
[2018-01-22 08:49] LABS: ANION GAP 5 mmol/L (5-15); CHLORIDE 104 mmol/L (98-107)
[2018-01-22 13:44] VITALS: BP 94/62
[2018-02-02] MEDS ORDERED: TORADOL PO (16:05)
[2018-02-02] MEDS ORDERED: ESOM40CA PO (16:05)
[2018-02-02] MEDS ORDERED: OXYC-307 PO (16:05)
== END 2018-01-22 16:20 | disposition home or self-care (01) | DRG 737 ==
LOC: 3NW 17:43
PROVIDERS: ADMIT Specialist; ATTEND Specialist
PROC: 0UT90ZZ Resection of Uterus, Open Approach (ICD-10-PCS; principal; 2018-01-09)
PROC: 0UB70ZZ Excision of Bilateral Fallopian Tubes, Open Approach (ICD-10-PCS; 2018-01-09)
PROC: 0UB20ZZ Excision of Bilateral Ovaries, Open Approach (ICD-10-PCS; 2018-01-09)
PROC: 0UQF0ZZ Repair Cul-de-sac, Open Approach (ICD-10-PCS; 2018-01-09)
PROC: 0DTU0ZZ Resection of Omentum, Open Approach (ICD-10-PCS; 2018-01-09)
PROC: 07BC0ZZ Excision of Pelvis Lymphatic, Open Approach (ICD-10-PCS; 2018-01-09)
PROC: 07TP0ZZ Resection of Spleen, Open Approach (ICD-10-PCS; 2018-01-09)
PROC: 0DTJ0ZZ Resection of Appendix, Open Approach (ICD-10-PCS; 2018-01-09)
PROC: 0FB20ZZ Excision of Left Lobe Liver, Open Approach (ICD-10-PCS; 2018-01-09)
PROC: 30233N1 Transfusion of Nonautologous Red Blood Cells into Peripheral Vein, Percutaneous Approach (ICD-10-PCS; 2018-01-09)
PROC: 0BBT0ZZ Excision of Diaphragm, Open Approach (ICD-10-PCS; 2018-01-09)
PROC: 0JQC0ZZ Repair Pelvic Region Subcutaneous Tissue and Fascia, Open Approach (ICD-10-PCS; 2018-01-09)
PROC: 0DBN0ZZ Excision of Sigmoid Colon, Open Approach (ICD-10-PCS; 2018-01-09)
PROC: 0WQF0ZZ Repair Abdominal Wall, Open Approach (ICD-10-PCS; 2018-01-09)
DX: C56.9 Malignant neoplasm of unspecified ovary (principal); C78.6 Secondary malignant neoplasm of retroperitoneum and peritoneum; R18.8 Other ascites; D62 Acute posthemorrhagic anemia; K56.7 Ileus, unspecified; K76.89 Other specified diseases of liver; E03.9 Hypothyroidism, unspecified; L23.9 Allergic contact dermatitis, unspecified cause; Z90.710 Acquired absence of both cervix and uterus; Z90.81 Acquired absence of spleen; Z23 Encounter for immunization
CPT/HCPCS: 36415; 71045; 74018; 80048; 80053; 82570; 83735; 85025; 85610; 86850; 86900; 86923; 88302; 88305; 88307; 88331; 90648; 90686; 90714; 90734; C1729; J0171; J0610; J1170; J1644; J1885; J2250; J2405; J2704; J3010; J3490; P9045; C1751; C1765; G0009; J0330; J0780; J2060; J3475; J3480; J7030; J7050; P9016; Q0163; S0074

== ENCOUNTER → 2018-01-31 | Outpatient (CLI) | payer OTHER ==
[~2018-01-31] MED LIST changes: +ESOM40CA PO; +OXYC-307 PO; +TORADOL PO
== END ==
LOC: RAD 07:56
PROVIDERS: ATTEND Specialist
DX: N13.70 Vesicoureteral-reflux, unspecified (principal); Z98.890 Other specified postprocedural states
CPT/HCPCS: 74430

== ENCOUNTER → 2018-02-04 | Outpatient (CLI) | payer OTHER ==
[2018-02-04 11:32] LABS: MICROSCOPIC INDICATED
[2018-02-04 11:38] LABS: MEAN CORPUSCULAR HEMOGLOBIN 31.6 pg (27.0-34.8); MEAN CORPUSCULAR HGB CONC 33.5 g/dL (32.4-35.8); MEAN CORPUSCULAR VOLUME 94.4 fL (80-100); MEAN PLATELET VOLUME 7.8 fL (7.4-10.4); PLATELET COUNT 988 x10^3/uL (130-400); RED BLOOD COUNT 2.89 x10^6/uL (3.82-5.3); RED CELL DISTRIBUTION WIDTH 14.5 % (9.6-15.2)
[2018-02-04 11:41] LABS: ALANINE AMINOTRANSFERASE 30 U/L (12-78); ALBUMIN 2.3 g/dL (3.4-5.0); ANION GAP 6 mmol/L (5-15); CALCIUM 8.5 mg/dL (8.5-10.1); CHLORIDE 102 mmol/L (98-107)
[2018-02-04 11:43] LABS: ALKALINE PHOSPHATASE 116 U/L (45-117); BILIRUBIN,TOTAL 0.2 mg/dL (0.2-1.0); TOTAL PROTEIN 6.8 g/dL (6.4-8.2)
[2018-02-04 12:14] LABS: MD YES
[2018-02-04 12:21] LABS: LYMPH#(MANUAL) 1.17 x10^3/uL (1-3.4); LYMPHS% (MANUAL) 7 % (22-44); METAMYELOCYTES# (MANUAL) 0.17 x10^3/uL (0-0); METAMYELOCYTES% (MANUAL) 1 % (0-1); MONOS% (MANUAL) 6 % (2-9); SEG#(MANUAL) 14.36 x10^3/uL (1.8-6.8); SEGS% (MANUAL) 86 % (42-75)
[2018-02-04 12:22] LABS: <PLATELET ESTIMATE> INCREASED; <PLT MORPHOLOGY> NORMAL PLT MORPH
[2018-02-04 12:24] LABS: POLYCHROMASIA 1+
== END | disposition home or self-care (01) ==
LOC: CFH 10:21
PROVIDERS: ATTEND Specialist
DX: R22.42 Localized swelling, mass and lump, left lower limb (principal); M79.605 Pain in left leg
CPT/HCPCS: 36415; 80053; 81001; 85025; 87040; 87077; 87086; 87186

== ENCOUNTER → 2018-03-29 | Outpatient (CLI) | payer OTHER ==
[~2018-03-29] MED LIST changes: +ACET-1600 PO; +DOCU-131 PO; +IBUP-1221 PO; +METO10TA82 PO; +OMNIPAQUE 350 MG/ML, 100ML BOTTLE ONE; +ONDA4TAB10 PO; +PROC10TA78 PO; +VENL37.52 PO
== END | disposition home or self-care (01) ==
LOC: RAD 14:35
PROVIDERS: ATTEND Specialist
DX: R06.02 Shortness of breath (principal); R07.9 Chest pain, unspecified
CPT/HCPCS: 71275; Q9967

== ENCOUNTER → 2018-05-02 | Outpatient (CLI) | payer OTHER ==
[~2018-05-02] MED LIST changes: -OMNIPAQUE 350 MG/ML, 100ML BOTTLE ONE
[2018-05-02 13:12] LABS: MEAN CORPUSCULAR HEMOGLOBIN 30.8 pg (27.0-34.8); MEAN CORPUSCULAR HGB CONC 33.1 g/dL (32.4-35.8); MEAN PLATELET VOLUME 8.9 fL (7.4-10.4); PLATELET COUNT 339 x10^3/uL (130-400); RED BLOOD COUNT 3.63 x10^6/uL (3.82-5.3); RED CELL DISTRIBUTION WIDTH 20.8 % (9.6-15.2)
[2018-05-02 13:28] LABS: MD YES
[2018-05-02 13:31] LABS: EOS#(MANUAL) 0.07 x10^3/uL (0.0-0.4); EOS% (MANUAL) 2 % (1-7); LYMPHS% (MANUAL) 65 % (22-44); SEG#(MANUAL) 0.96 x10^3/uL (1.8-6.8); SEGS% (MANUAL) 29 % (42-75)
[2018-05-02 13:32] LABS: ANISOCYTOSIS 1+; HOWELL-JOLLY BODIES 1+; LYMPH#(MANUAL) 2.15 x10^3/uL (1-3.4); MICROCYTOSIS 1+; MONOS#(MANUAL) 0.13 x10^3/uL (0.3-2.7); MONOS% (MANUAL) 4 % (2-9)
[2018-05-02 13:33] LABS: <PLATELET ESTIMATE> ADEQUATE; <PLT MORPHOLOGY> NORMAL PLT MORPH; TARGET CELLS 1+
== END | disposition home or self-care (01) ==
LOC: LAB 12:21
PROVIDERS: ATTEND Registered Nurse
DX: C56.9 Malignant neoplasm of unspecified ovary (principal)
CPT/HCPCS: 36415; 85025

== ENCOUNTER → 2018-05-09 | Outpatient (CLI) | payer OTHER ==
[2018-05-09 12:13] LABS: MD YES
[2018-05-09 12:15] LABS: MEAN CORPUSCULAR HEMOGLOBIN 30.8 pg (27.0-34.8); MEAN CORPUSCULAR HGB CONC 32.7 g/dL (32.4-35.8); MEAN CORPUSCULAR VOLUME 94.2 fL (80-100); MEAN PLATELET VOLUME 7.9 fL (7.4-10.4); PLATELET COUNT 412 x10^3/uL (130-400); RED CELL DISTRIBUTION WIDTH 21.2 % (9.6-15.2)
[2018-05-09 12:20] LABS: ANISOCYTOSIS 1+; EOS#(MANUAL) 0.04 x10^3/uL (0.0-0.4); EOS% (MANUAL) 1 % (1-7); LYMPH#(MANUAL) 2.44 x10^3/uL (1-3.4); LYMPHS% (MANUAL) 66 % (22-44); MICROCYTOSIS 1+; MONOS#(MANUAL) 0.78 x10^3/uL (0.3-2.7); MONOS% (MANUAL) 21 % (2-9); SEG#(MANUAL) 0.44 x10^3/uL (1.8-6.8); SEGS% (MANUAL) 12 % (42-75)
[2018-05-09 12:21] LABS: <PLATELET ESTIMATE> ADEQUATE; <PLT MORPHOLOGY> NORMAL PLT MORPH
== END | disposition home or self-care (01) ==
LOC: LAB 11:06
PROVIDERS: ATTEND Specialist
DX: Z51.11 Encounter for antineoplastic chemotherapy (principal); C56.9 Malignant neoplasm of unspecified ovary
CPT/HCPCS: 36415; 85025

== ENCOUNTER → 2018-05-12 | Outpatient (CLI) | payer OTHER | END | disposition home or self-care (01) | LOC: CFH 10:33 | PROVIDERS: ATTEND Obstetrics & Gynecology Gynecology | DX: Z12.31 Encounter for screening mammogram for malignant neoplasm of breast (principal) | CPT/HCPCS: 77063; 77067 ==

== ENCOUNTER → 2018-05-23 | Outpatient (CLI) | payer OTHER ==
[2018-05-23 12:55] LABS: MICROSCOPIC NOT IND
[2018-05-23 13:03] LABS: BASOPHILS % (AUTO) 0 % (0-1); CULTURE INDICATED? NO; EOSINOPHILS # (AUTO) 0.11 x10^3/uL (0-0.4); EOSINOPHILS % (AUTO) 3 % (1-7); HCT (SEDRATE) 35.3 % (34.6-47.8); LYMPHOCYTES # (AUTO) 1.45 x10^3/uL (1-3.4); LYMPHOCYTES % (AUTO) 43 % (22-44); MD NO; MEAN CORPUSCULAR HEMOGLOBIN 30.9 pg (27.0-34.8); MEAN CORPUSCULAR HGB CONC 32.7 g/dL (32.4-35.8); MEAN CORPUSCULAR VOLUME 94.5 fL (80-100); MEAN PLATELET VOLUME 9.5 fL (7.4-10.4); MONOCYTES # (AUTO) 0.16 x10^3/uL (0.2-0.8); MONOCYTES % (AUTO) 5 % (2-9); NEUTROPHILS # (AUTO) 1.68 x10^3/uL (1.8-6.8); NEUTROPHILS % (AUTO) 50 % (42-75); PLATELET COUNT 158 x10^3/uL (130-400); RED BLOOD COUNT 3.74 x10^6/uL (3.82-5.3)
[2018-05-23 13:04] LABS: ALANINE AMINOTRANSFERASE 30 U/L (12-78); ALBUMIN 3.6 g/dL (3.4-5.0); ANION GAP 5 mmol/L (5-15); C-REACTIVE PROTEIN, QUANT 0.05 mg/dL (0.02-0.49); CALCIUM 8.9 mg/dL (8.5-10.1); CHLORIDE 103 mmol/L (98-107)
[2018-05-23 13:06] LABS: ALKALINE PHOSPHATASE 42 U/L (45-117); BILIRUBIN,TOTAL 0.4 mg/dL (0.2-1.0); TOTAL PROTEIN 6.8 g/dL (6.4-8.2)
[2018-05-23 13:16] LABS: PROTEIN/CREATININE RATIO,URINE < 179 (0-200); TOTAL PROTEIN,URINE RANDOM < 5 mg/dL (0-12)
== END | disposition home or self-care (01) ==
LOC: LAB 12:28
PROVIDERS: ATTEND Physician Assistant
DX: Z51.11 Encounter for antineoplastic chemotherapy (principal); C56.9 Malignant neoplasm of unspecified ovary; M76.50 Patellar tendinitis, unspecified knee; M25.50 Pain in unspecified joint
CPT/HCPCS: 36415; 80053; 81003; 82570; 84156; 85025; 85651; 86140; 86160

== ENCOUNTER → 2018-06-06 | Outpatient (CLI) | payer OTHER ==
[2018-06-06 11:16] LABS: ALANINE AMINOTRANSFERASE 30 U/L (12-78); ALBUMIN 3.7 g/dL (3.4-5.0); ANION GAP 6 mmol/L (5-15); CALCIUM 9.1 mg/dL (8.5-10.1); CHLORIDE 108 mmol/L (98-107); CREATININE 0.95 mg/dL (0.55-1.02)
[2018-06-06 11:18] LABS: ALKALINE PHOSPHATASE 50 U/L (45-117); BILIRUBIN,TOTAL 0.2 mg/dL (0.2-1.0); TOTAL PROTEIN 7.3 g/dL (6.4-8.2)
[2018-06-06 11:24] LABS: MEAN CORPUSCULAR HEMOGLOBIN 31.4 pg (27.0-34.8); MEAN CORPUSCULAR HGB CONC 32.6 g/dL (32.4-35.8); MEAN CORPUSCULAR VOLUME 96.3 fL (80-100); MEAN PLATELET VOLUME 8.5 fL (7.4-10.4); PLATELET COUNT 293 x10^3/uL (130-400); RED BLOOD COUNT 3.92 x10^6/uL (3.82-5.3); RED CELL DISTRIBUTION WIDTH 20.6 % (9.6-15.2)
[2018-06-06 11:28] LABS: FREE T4 (FREE THYROXINE) 1.15 ng/dL (0.76-1.46); THYROID STIMULATING HORMONE 0.502 mIU/L (0.358-3.740)
[2018-06-06 11:32] LABS: MICROSCOPIC AUTO
[2018-06-06 12:30] LABS: MD YES
[2018-06-06 12:38] LABS: BAND#(MANUAL) 0.07 x10^3/uL; BANDS%(MANUAL) 2 % (0-7); EOS% (MANUAL) 8 % (1-7); LYMPHS% (MANUAL) 46 % (22-44); MONOS#(MANUAL) 0.22 x10^3/uL (0.3-2.7); MONOS% (MANUAL) 6 % (2-9); SEG#(MANUAL) 1.41 x10^3/uL (1.8-6.8); SEGS% (MANUAL) 38 % (42-75)
[2018-06-06 12:39] LABS: <PLATELET ESTIMATE> ADEQUATE; ANISOCYTOSIS 1+; HOWELL-JOLLY BODIES 1+
[2018-06-06 12:40] LABS: <PLT MORPHOLOGY> NORMAL PLT MORPH
== END | disposition home or self-care (01) ==
LOC: LAB 10:42
PROVIDERS: ATTEND Internal Medicine Endocrinology, Diabetes & Metabolism
DX: C56.9 Malignant neoplasm of unspecified ovary (principal); R97.1 Elevated cancer antigen 125 [CA 125]; E03.9 Hypothyroidism, unspecified
CPT/HCPCS: 36415; 80053; 81001; 83735; 84100; 84156; 84439; 84443; 84481; 85025; 86304

== ENCOUNTER → 2018-06-13 | Outpatient (CLI) | payer OTHER ==
[2018-06-13 12:55] LABS: MEAN CORPUSCULAR HEMOGLOBIN 32.1 pg (27.0-34.8); MEAN CORPUSCULAR HGB CONC 33.5 g/dL (32.4-35.8); MEAN CORPUSCULAR VOLUME 95.8 fL (80-100); MEAN PLATELET VOLUME 8.6 fL (7.4-10.4); PLATELET COUNT 241 x10^3/uL (130-400); RED BLOOD COUNT 3.58 x10^6/uL (3.82-5.3); RED CELL DISTRIBUTION WIDTH 20.4 % (9.6-15.2)
[2018-06-13 12:56] LABS: MD YES
[2018-06-13 13:29] LABS: BASOS#(MANUAL) 0.07 x10^3/uL (0-0.1); BASOS% (MANUAL) 2 % (0-1); EOS#(MANUAL) 0.11 x10^3/uL (0.0-0.4); EOS% (MANUAL) 3 % (1-7); LYMPH#(MANUAL) 1.94 x10^3/uL (1-3.4); LYMPHS% (MANUAL) 54 % (22-44); MONOS#(MANUAL) 0.11 x10^3/uL (0.3-2.7); MONOS% (MANUAL) 3 % (2-9); SEG#(MANUAL) 1.37 x10^3/uL (1.8-6.8); SEGS% (MANUAL) 38 % (42-75)
[2018-06-13 13:31] LABS: ANISOCYTOSIS 1+
[2018-06-13 13:32] LABS: <PLATELET ESTIMATE> ADEQUATE; <PLT MORPHOLOGY> NORMAL PLT MORPH
== END | disposition home or self-care (01) ==
LOC: LAB 12:40
PROVIDERS: ATTEND Specialist
DX: Z51.11 Encounter for antineoplastic chemotherapy (principal); C56.9 Malignant neoplasm of unspecified ovary
CPT/HCPCS: 36415; 85025

== ENCOUNTER → 2018-06-27 | Outpatient (CLI) | payer OTHER ==
[2018-06-27 12:42] LABS: MEAN CORPUSCULAR HEMOGLOBIN 32.5 pg (27.0-34.8); MEAN CORPUSCULAR HGB CONC 33.6 g/dL (32.4-35.8); MEAN CORPUSCULAR VOLUME 96.7 fL (80-100); MEAN PLATELET VOLUME 8.1 fL (7.4-10.4); PLATELET COUNT 283 x10^3/uL (130-400); RED BLOOD COUNT 3.81 x10^6/uL (3.82-5.3); RED CELL DISTRIBUTION WIDTH 20.8 % (9.6-15.2)
[2018-06-27 12:43] LABS: MD YES
[2018-06-27 12:46] LABS: ALANINE AMINOTRANSFERASE 30 U/L (12-78); ALBUMIN 3.9 g/dL (3.4-5.0); ANION GAP 6 mmol/L (5-15); CALCIUM 9.4 mg/dL (8.5-10.1); CHLORIDE 106 mmol/L (98-107)
[2018-06-27 12:47] LABS: ALKALINE PHOSPHATASE 49 U/L (45-117); BILIRUBIN,TOTAL 0.2 mg/dL (0.2-1.0); CREATININE 0.94 mg/dL (0.55-1.02); TOTAL PROTEIN 7.6 g/dL (6.4-8.2)
[2018-06-27 12:59] LABS: CREATININE,URINE RANDOM < 13.00 mg/dL; PROTEIN/CREATININE RATIO,URINE < 385 (0-200); TOTAL PROTEIN,URINE RANDOM < 5 mg/dL (0-12)
[2018-06-27 13:03] LABS: ANISOCYTOSIS 1+; EOS#(MANUAL) 0.04 x10^3/uL (0.0-0.4); EOS% (MANUAL) 1 % (1-7); LYMPH#(MANUAL) 2.13 x10^3/uL (1-3.4); LYMPHS% (MANUAL) 56 % (22-44); MONOS#(MANUAL) 0.53 x10^3/uL (0.3-2.7); MONOS% (MANUAL) 14 % (2-9); SEGS% (MANUAL) 29 % (42-75)
[2018-06-27 13:04] LABS: <PLATELET ESTIMATE> ADEQUATE; <PLT MORPHOLOGY> NORMAL PLT MORPH
== END | disposition home or self-care (01) ==
LOC: LAB 12:09
PROVIDERS: ATTEND Registered Nurse Maternal Newborn
DX: Z51.11 Encounter for antineoplastic chemotherapy (principal); C56.9 Malignant neoplasm of unspecified ovary; E83.42 Hypomagnesemia
CPT/HCPCS: 36415; 80053; 82570; 83735; 84100; 84156; 85025; 86304

== ENCOUNTER → 2018-07-18 | Outpatient (CLI) | payer OTHER ==
[2018-07-18 13:16] LABS: MEAN CORPUSCULAR HGB CONC 33.4 g/dL (32.4-35.8); MEAN CORPUSCULAR VOLUME 98.7 fL (80-100); MEAN PLATELET VOLUME 8.6 fL (7.4-10.4); PLATELET COUNT 395 x10^3/uL (130-400); RED BLOOD COUNT 3.72 x10^6/uL (3.82-5.3); RED CELL DISTRIBUTION WIDTH 21.3 % (9.6-15.2)
[2018-07-18 13:20] LABS: MICROSCOPIC AUTO
[2018-07-18 13:21] LABS: CULTURE INDICATED? YES
[2018-07-18 13:24] LABS: ALBUMIN 3.1 g/dL (3.4-5.0); ANION GAP 4 mmol/L (5-15); CALCIUM 8.6 mg/dL (8.5-10.1); CHLORIDE 106 mmol/L (98-107)
[2018-07-18 13:34] LABS: PROTEIN/CREATININE RATIO,URINE < 91 (0-200); TOTAL PROTEIN,URINE RANDOM < 5 mg/dL (0-12)
[2018-07-18 13:35] LABS: ALANINE AMINOTRANSFERASE 38 U/L (12-78); ALKALINE PHOSPHATASE 43 U/L (45-117); BILIRUBIN,TOTAL 0.3 mg/dL (0.2-1.0); CREATININE 1.02 mg/dL (0.55-1.02); FREE T4 (FREE THYROXINE) 1.11 ng/dL (0.76-1.46); THYROID STIMULATING HORMONE 0.618 mIU/L (0.358-3.740); TOTAL PROTEIN 6.3 g/dL (6.4-8.2)
[2018-07-18 13:45] LABS: MD YES
[2018-07-18 14:02] LABS: BAND#(MANUAL) 0.08 x10^3/uL; BANDS%(MANUAL) 1 % (0-7); BASOS#(MANUAL) 0.08 x10^3/uL (0-0.1); BASOS% (MANUAL) 1 % (0-1); EOS#(MANUAL) 2.24 x10^3/uL (0.0-0.4); EOS% (MANUAL) 27 % (1-7); LYMPH#(MANUAL) 1.99 x10^3/uL (1-3.4); LYMPHS% (MANUAL) 24 % (22-44); MONOS#(MANUAL) 1.25 x10^3/uL (0.3-2.7); MONOS% (MANUAL) 15 % (2-9); REACTIVE LYMPHS # (MANUAL) 0.42 x10^3/uL (0-0); REACTIVE LYMPHS % (MANUAL) 5 % (0-0); SEG#(MANUAL) 2.24 x10^3/uL (1.8-6.8); SEGS% (MANUAL) 27 % (42-75)
[2018-07-18 14:03] LABS: <PLATELET ESTIMATE> ADEQUATE; <PLT MORPHOLOGY> NORMAL PLT MORPH; ANISOCYTOSIS 1+
== END | disposition home or self-care (01) ==
LOC: LAB 12:49
PROVIDERS: ATTEND Physician Assistant
DX: Z51.11 Encounter for antineoplastic chemotherapy (principal); C56.9 Malignant neoplasm of unspecified ovary; E83.42 Hypomagnesemia; D72.829 Elevated white blood cell count, unspecified
CPT/HCPCS: 36415; 80053; 81001; 82570; 83735; 84100; 84156; 84439; 84443; 84481; 85025; 86304; 87086

== ENCOUNTER → 2018-08-09 | Outpatient (CLI) | payer OTHER ==
[~2018-08-09] MED LIST changes: +LAMO200T49 PO; +OMEG1CAP23 PO
[2018-08-09 15:52] LABS: ALBUMIN 3.6 g/dL (3.4-5.0); ANION GAP 5 mmol/L (5-15); CALCIUM 8.8 mg/dL (8.5-10.1); CHLORIDE 108 mmol/L (98-107)
[2018-08-09 16:01] LABS: ALANINE AMINOTRANSFERASE 43 U/L (12-78); ALKALINE PHOSPHATASE 45 U/L (45-117); BILIRUBIN,TOTAL 0.2 mg/dL (0.2-1.0); CREATININE 0.94 mg/dL (0.55-1.02); FREE T4 (FREE THYROXINE) 1.04 ng/dL (0.76-1.46); THYROID STIMULATING HORMONE 0.623 mIU/L (0.358-3.740); TOTAL PROTEIN 6.7 g/dL (6.4-8.2)
[2018-08-09 16:10] LABS: MEAN CORPUSCULAR HEMOGLOBIN 32.6 pg (27.0-34.8); MEAN CORPUSCULAR HGB CONC 32.8 g/dL (32.4-35.8); MEAN CORPUSCULAR VOLUME 99.4 fL (80-100); MEAN PLATELET VOLUME 9.3 fL (7.4-10.4); PLATELET COUNT 324 x10^3/uL (130-400); RED BLOOD COUNT 3.68 x10^6/uL (3.82-5.3); RED CELL DISTRIBUTION WIDTH 19.1 % (9.6-15.2)
[2018-08-09 16:34] LABS: MICROSCOPIC NOT IND
[2018-08-09 16:49] LABS: PROTEIN/CREATININE RATIO,URINE < 144 (0-200); TOTAL PROTEIN,URINE RANDOM < 5 mg/dL (0-12)
[2018-08-09 17:15] LABS: MD YES
[2018-08-09 17:19] LABS: BASOS#(MANUAL) 0.06 x10^3/uL (0-0.1); BASOS% (MANUAL) 1 % (0-1); EOS#(MANUAL) 1.28 x10^3/uL (0.0-0.4); EOS% (MANUAL) 20 % (1-7); LYMPH#(MANUAL) 1.98 x10^3/uL (1-3.4); LYMPHS% (MANUAL) 31 % (22-44); MONOS#(MANUAL) 0.77 x10^3/uL (0.3-2.7); MONOS% (MANUAL) 12 % (2-9); SEGS% (MANUAL) 36 % (42-75)
[2018-08-09 17:20] LABS: ANISOCYTOSIS 1+; POLYCHROMASIA 1+
[2018-08-09 17:21] LABS: <PLATELET ESTIMATE> ADEQUATE; <PLT MORPHOLOGY> NORMAL PLT MORPH
== END | disposition home or self-care (01) ==
LOC: LAB 15:12
PROVIDERS: ATTEND Specialist
DX: C56.9 Malignant neoplasm of unspecified ovary (principal); D72.829 Elevated white blood cell count, unspecified; E83.42 Hypomagnesemia; R97.1 Elevated cancer antigen 125 [CA 125]
CPT/HCPCS: 36415; 80053; 81003; 82570; 83735; 84100; 84156; 84439; 84443; 84481; 85025; 86304

== ENCOUNTER → 2018-08-22 | Outpatient (CLI) | payer OTHER | END | disposition home or self-care (01) | LOC: CFH 15:31 | PROVIDERS: ATTEND Family Medicine | DX: M19.071 Primary osteoarthritis, right ankle and foot (principal); M72.2 Plantar fascial fibromatosis ==

== ENCOUNTER → 2018-08-30 | Outpatient (CLI) | payer OTHER ==
[2018-08-30 14:35] LABS: FREE T4 (FREE THYROXINE) 1.25 ng/dL (0.76-1.46); THYROID STIMULATING HORMONE 0.688 mIU/L (0.358-3.740)
== END | disposition home or self-care (01) ==
LOC: LAB 13:59
PROVIDERS: ATTEND Internal Medicine
DX: E55.9 Vitamin D deficiency, unspecified (principal); E03.9 Hypothyroidism, unspecified
CPT/HCPCS: 36415; 82306; 84439; 84443; 84480; 84482

== ENCOUNTER → 2018-09-19 | Outpatient (CLI) | payer OTHER ==
[2018-09-19 11:06] LABS: MICROSCOPIC NOT IND
[2018-09-19 11:18] LABS: ALANINE AMINOTRANSFERASE 40 U/L (12-78); ALBUMIN 3.8 g/dL (3.4-5.0); ANION GAP 7 mmol/L (5-15); CALCIUM 8.6 mg/dL (8.5-10.1); CHLORIDE 107 mmol/L (98-107); CREATININE 0.88 mg/dL (0.55-1.02)
[2018-09-19 11:20] LABS: ALKALINE PHOSPHATASE 43 U/L (45-117); BILIRUBIN,TOTAL 0.3 mg/dL (0.2-1.0)
[2018-09-19 11:25] LABS: MEAN CORPUSCULAR HEMOGLOBIN 34.5 pg (27.0-34.8); MEAN CORPUSCULAR HGB CONC 33.9 g/dL (32.4-35.8); MEAN CORPUSCULAR VOLUME 101.8 fL (80-100); PLATELET COUNT 325 x10^3/uL (130-400); RED BLOOD COUNT 3.75 x10^6/uL (3.82-5.3); RED CELL DISTRIBUTION WIDTH 15.5 % (9.6-15.2)
[2018-09-19 11:42] LABS: MD YES
[2018-09-19 11:44] LABS: EOS% (MANUAL) 15 % (1-7); MONOS#(MANUAL) 0.37 x10^3/uL (0.3-2.7); MONOS% (MANUAL) 5 % (2-9)
[2018-09-19 11:45] LABS: <PLATELET ESTIMATE> ADEQUATE; <PLT MORPHOLOGY> NORMAL PLT MORPH; ANISOCYTOSIS 1+
[2018-09-19 11:46] LABS: LYMPH#(MANUAL) 2.48 x10^3/uL (1-3.4); LYMPHS% (MANUAL) 34 % (22-44); SEG#(MANUAL) 3.36 x10^3/uL (1.8-6.8); SEGS% (MANUAL) 46 % (42-75)
== END | disposition home or self-care (01) ==
LOC: LAB 10:42
PROVIDERS: ATTEND Physician Assistant
DX: Z00.6 Encounter for examination for normal comparison and control in clinical research program (principal); C56.9 Malignant neoplasm of unspecified ovary; E83.42 Hypomagnesemia
CPT/HCPCS: 36415; 80053; 81003; 82570; 83735; 84100; 84156; 85025; 86304

== ENCOUNTER → 2018-10-10 | Outpatient (CLI) | payer OTHER ==
[2018-10-10 11:29] LABS: ALANINE AMINOTRANSFERASE 42 U/L (12-78); ALBUMIN 4.1 g/dL (3.4-5.0); ANION GAP 6 mmol/L (5-15); CALCIUM 9.3 mg/dL (8.5-10.1); CHLORIDE 107 mmol/L (98-107); MEAN CORPUSCULAR HEMOGLOBIN 34.5 pg (27.0-34.8); MEAN CORPUSCULAR HGB CONC 33.8 g/dL (32.4-35.8); MEAN CORPUSCULAR VOLUME 101.9 fL (80-100); MEAN PLATELET VOLUME 8.7 fL (7.4-10.4); PLATELET COUNT 324 x10^3/uL (130-400); RED BLOOD COUNT 4.09 x10^6/uL (3.82-5.3); RED CELL DISTRIBUTION WIDTH 15.4 % (9.6-15.2)
[2018-10-10 11:38] LABS: ALKALINE PHOSPHATASE 49 U/L (45-117); BILIRUBIN,TOTAL 0.4 mg/dL (0.2-1.0); CREATININE 0.98 mg/dL (0.55-1.02); FREE T4 (FREE THYROXINE) 1.18 ng/dL (0.76-1.46); THYROID STIMULATING HORMONE 0.776 mIU/L (0.358-3.740); TOTAL PROTEIN 7.5 g/dL (6.4-8.2)
[2018-10-10 12:07] LABS: MD YES
[2018-10-10 12:09] LABS: <PLATELET ESTIMATE> ADEQUATE; ANISOCYTOSIS 1+; BAND#(MANUAL) 0.11 x10^3/uL; BANDS%(MANUAL) 2 % (0-7); EOS#(MANUAL) 1.01 x10^3/uL (0.0-0.4); EOS% (MANUAL) 19 % (1-7); LYMPHS% (MANUAL) 34 % (22-44); MONOS#(MANUAL) 0.53 x10^3/uL (0.3-2.7); MONOS% (MANUAL) 10 % (2-9); SEG#(MANUAL) 1.86 x10^3/uL (1.8-6.8); SEGS% (MANUAL) 35 % (42-75)
== END | disposition home or self-care (01) ==
LOC: LAB 11:04
PROVIDERS: ATTEND Registered Nurse Maternal Newborn
DX: C56.9 Malignant neoplasm of unspecified ovary (principal); E83.42 Hypomagnesemia
CPT/HCPCS: 36415; 80053; 83735; 84100; 84439; 84443; 84481; 85025; 86304

== ENCOUNTER → 2018-10-31 | Outpatient (CLI) | payer OTHER ==
[2018-10-31 10:14] LABS: MICROSCOPIC NOT IND
[2018-10-31 10:26] LABS: ALANINE AMINOTRANSFERASE 39 U/L (12-78); ALBUMIN 4.1 g/dL (3.4-5.0); ANION GAP 7 mmol/L (5-15); CALCIUM 8.9 mg/dL (8.5-10.1); CHLORIDE 105 mmol/L (98-107); CREATININE 0.98 mg/dL (0.55-1.02)
[2018-10-31 10:28] LABS: ALKALINE PHOSPHATASE 51 U/L (45-117); BILIRUBIN,TOTAL 0.3 mg/dL (0.2-1.0); TOTAL PROTEIN 7.5 g/dL (6.4-8.2)
[2018-10-31 10:31] LABS: MEAN CORPUSCULAR HEMOGLOBIN 33.7 pg (27.0-34.8); MEAN CORPUSCULAR HGB CONC 32.8 g/dL (32.4-35.8); MEAN CORPUSCULAR VOLUME 102.8 fL (80-100); MEAN PLATELET VOLUME 9.1 fL (7.4-10.4); PLATELET COUNT 293 x10^3/uL (130-400); RED BLOOD COUNT 4.02 x10^6/uL (3.82-5.3)
[2018-10-31 10:48] LABS: ANISOCYTOSIS 1+; BASOPHILS # (AUTO) 0.02 x10^3/uL (0-0.1); BASOPHILS % (AUTO) 0 % (0-1); EOSINOPHILS # (AUTO) 0.31 x10^3/uL (0-0.4); EOSINOPHILS % (AUTO) 4 % (1-7); LYMPHOCYTES # (AUTO) 1.87 x10^3/uL (1-3.4); LYMPHOCYTES % (AUTO) 24 % (22-44); MD MORPH REVIEW ONLY; MONOCYTES # (AUTO) 0.68 x10^3/uL (0.2-0.8); MONOCYTES % (AUTO) 9 % (2-9); NEUTROPHILS # (AUTO) 4.81 x10^3/uL (1.8-6.8); NEUTROPHILS % (AUTO) 63 % (42-75); SCHISTOCYTES 1+
[2018-10-31 10:49] LABS: <PLATELET ESTIMATE> ADEQUATE; <PLT MORPHOLOGY> NORMAL PLT MORPH
== END | disposition home or self-care (01) ==
LOC: LAB 09:52
PROVIDERS: ATTEND Internal Medicine
DX: C56.9 Malignant neoplasm of unspecified ovary (principal); R76.8 Other specified abnormal immunological findings in serum
CPT/HCPCS: 36415; 80053; 81003; 82550; 83516; 83735; 84100; 84156; 85025; 86038; 86160; 86225; 86235; 86255; 86256; 86304; 86376; 86431

== ENCOUNTER → 2018-11-23 | Outpatient (CLI) | payer OTHER ==
[2018-11-23 09:54] LABS: ALANINE AMINOTRANSFERASE 37 U/L (12-78); CHLORIDE 105 mmol/L (98-107)
[2018-11-23 10:03] LABS: ALBUMIN 4.2 g/dL (3.4-5.0); ALKALINE PHOSPHATASE 55 U/L (45-117); ANION GAP 7 mmol/L (5-15); BILIRUBIN,TOTAL 0.3 mg/dL (0.2-1.0); CALCIUM 9.3 mg/dL (8.5-10.1); CREATININE 0.92 mg/dL (0.55-1.02); FREE T4 (FREE THYROXINE) 0.99 ng/dL (0.76-1.46); TOTAL PROTEIN 7.7 g/dL (6.4-8.2)
[2018-11-23 11:41] LABS: MEAN CORPUSCULAR HGB CONC 33.3 g/dL (32.4-35.8); MEAN CORPUSCULAR VOLUME 102.1 fL (80-100); MEAN PLATELET VOLUME 8.6 fL (7.4-10.4); PLATELET COUNT 323 x10^3/uL (130-400); RED BLOOD COUNT 4.37 x10^6/uL (3.82-5.3)
[2018-11-23 11:42] LABS: MD YES
[2018-11-23 11:44] LABS: ANISOCYTOSIS 1+; EOS#(MANUAL) 0.23 x10^3/uL (0.0-0.4); EOS% (MANUAL) 4 % (1-7); LYMPH#(MANUAL) 2.17 x10^3/uL (1-3.4); LYMPHS% (MANUAL) 38 % (22-44); MONOS#(MANUAL) 0.68 x10^3/uL (0.3-2.7); MONOS% (MANUAL) 12 % (2-9); SEG#(MANUAL) 2.62 x10^3/uL (1.8-6.8); SEGS% (MANUAL) 46 % (42-75)
[2018-11-23 11:45] LABS: <PLATELET ESTIMATE> ADEQUATE; <PLT MORPHOLOGY> NORMAL PLT MORPH; TARGET CELLS 1+
== END | disposition home or self-care (01) ==
LOC: LAB 09:30
PROVIDERS: ATTEND Physician Assistant
DX: Z51.11 Encounter for antineoplastic chemotherapy (principal); C56.9 Malignant neoplasm of unspecified ovary
CPT/HCPCS: 36415; 80053; 83735; 84100; 84439; 84443; 84481; 85025; 86304

== ENCOUNTER → 2018-12-13 | Outpatient (CLI) | payer OTHER ==
[2018-12-13 12:23] LABS: MEAN CORPUSCULAR HEMOGLOBIN 34.5 pg (27.0-34.8); MEAN CORPUSCULAR HGB CONC 34.2 g/dL (32.4-35.8); MEAN CORPUSCULAR VOLUME 100.8 fL (80-100); MEAN PLATELET VOLUME 8.7 fL (7.4-10.4); PLATELET COUNT 290 x10^3/uL (130-400); RED BLOOD COUNT 4.23 x10^6/uL (3.82-5.3); RED CELL DISTRIBUTION WIDTH 14.9 % (9.6-15.2)
[2018-12-13 12:32] LABS: CHLORIDE 104 mmol/L (98-107)
[2018-12-13 12:41] LABS: ALANINE AMINOTRANSFERASE 35 U/L (12-78); ALBUMIN 4.1 g/dL (3.4-5.0); ALKALINE PHOSPHATASE 55 U/L (45-117); ANION GAP 3 mmol/L (5-15); BILIRUBIN,TOTAL 0.3 mg/dL (0.2-1.0); CALCIUM 9.8 mg/dL (8.5-10.1); CREATININE 0.95 mg/dL (0.55-1.02); TOTAL PROTEIN 7.3 g/dL (6.4-8.2)
[2018-12-13 12:54] LABS: BASOPHILS # (AUTO) 0.01 x10^3/uL (0-0.1); BASOPHILS % (AUTO) 0 % (0-1); EOSINOPHILS # (AUTO) 0.16 x10^3/uL (0-0.4); EOSINOPHILS % (AUTO) 2 % (1-7); LYMPHOCYTES # (AUTO) 1.55 x10^3/uL (1-3.4); LYMPHOCYTES % (AUTO) 23 % (22-44); MD SCAN; MONOCYTES # (AUTO) 0.84 x10^3/uL (0.2-0.8); MONOCYTES % (AUTO) 12 % (2-9); NEUTROPHILS # (AUTO) 4.32 x10^3/uL (1.8-6.8); NEUTROPHILS % (AUTO) 63 % (42-75)
== END | disposition home or self-care (01) ==
LOC: LAB 12:00
PROVIDERS: ATTEND Physician Assistant
DX: Z51.11 Encounter for antineoplastic chemotherapy (principal); C56.9 Malignant neoplasm of unspecified ovary
CPT/HCPCS: 36415; 80053; 83735; 84100; 85025; 86304

== ENCOUNTER → 2019-01-24 | Outpatient (CLI) | payer OTHER ==
[2019-01-24 11:49] LABS: BASOPHILS # (AUTO) 0.03 x10^3/uL (0-0.1); BASOPHILS % (AUTO) 0 % (0-1); EOSINOPHILS # (AUTO) 0.75 x10^3/uL (0-0.4); EOSINOPHILS % (AUTO) 11 % (1-7); LYMPHOCYTES % (AUTO) 28 % (22-44); MD NO; MEAN CORPUSCULAR HGB CONC 33.5 g/dL (32.4-35.8); MEAN CORPUSCULAR VOLUME 101.4 fL (80-100); MEAN PLATELET VOLUME 8.3 fL (7.4-10.4); MONOCYTES # (AUTO) 0.83 x10^3/uL (0.2-0.8); MONOCYTES % (AUTO) 12 % (2-9); NEUTROPHILS # (AUTO) 3.55 x10^3/uL (1.8-6.8); NEUTROPHILS % (AUTO) 50 % (42-75); PLATELET COUNT 315 x10^3/uL (130-400); RED BLOOD COUNT 4.27 x10^6/uL (3.82-5.3)
[2019-01-24 12:00] LABS: ALBUMIN 4.1 g/dL (3.4-5.0); ANION GAP 4 mmol/L (5-15); CALCIUM 9.6 mg/dL (8.5-10.1); CHLORIDE 105 mmol/L (98-107)
[2019-01-24 12:03] LABS: ALANINE AMINOTRANSFERASE 39 U/L (12-78); ALKALINE PHOSPHATASE 57 U/L (45-117); BILIRUBIN,TOTAL 0.5 mg/dL (0.2-1.0); CREATININE 0.99 mg/dL (0.55-1.02); TOTAL PROTEIN 7.6 g/dL (6.4-8.2)
[2019-01-24 12:15] LABS: MICROSCOPIC NOT IND
[2019-01-24 12:22] LABS: PROTEIN/CREATININE RATIO,URINE < 165 (0-200); TOTAL PROTEIN,URINE RANDOM < 5 mg/dL (0-12)
== END | disposition home or self-care (01) ==
LOC: LAB 11:26
PROVIDERS: ATTEND Physician Assistant
DX: Z51.11 Encounter for antineoplastic chemotherapy (principal); C56.9 Malignant neoplasm of unspecified ovary; E83.42 Hypomagnesemia
CPT/HCPCS: 36415; 80053; 81003; 82570; 83735; 84156; 85025; 86304

== ENCOUNTER → 2019-02-13 | Outpatient (CLI) | payer OTHER ==
[2019-02-13 11:27] LABS: MICROSCOPIC NOT IND
[2019-02-13 11:29] LABS: BASOPHILS # (AUTO) 0.03 x10^3/uL (0-0.1); BASOPHILS % (AUTO) 0 % (0-1); EOSINOPHILS % (AUTO) 15 % (1-7); LYMPHOCYTES # (AUTO) 2.35 x10^3/uL (1-3.4); LYMPHOCYTES % (AUTO) 29 % (22-44); MD NO; MEAN CORPUSCULAR HEMOGLOBIN 33.9 pg (27.0-34.8); MEAN CORPUSCULAR VOLUME 102.5 fL (80-100); MEAN PLATELET VOLUME 8.5 fL (7.4-10.4); MONOCYTES # (AUTO) 0.76 x10^3/uL (0.2-0.8); MONOCYTES % (AUTO) 9 % (2-9); NEUTROPHILS # (AUTO) 3.72 x10^3/uL (1.8-6.8); NEUTROPHILS % (AUTO) 46 % (42-75); PLATELET COUNT 350 x10^3/uL (130-400); RED BLOOD COUNT 4.16 x10^6/uL (3.82-5.3); RED CELL DISTRIBUTION WIDTH 15.6 % (9.6-15.2)
[2019-02-13 12:09] LABS: CHLORIDE 107 mmol/L (98-107)
[2019-02-13 12:17] LABS: ALANINE AMINOTRANSFERASE 42 U/L (12-78); ALBUMIN 4.1 g/dL (3.4-5.0); ALKALINE PHOSPHATASE 57 U/L (45-117); ANION GAP 5 mmol/L (5-15); BILIRUBIN,TOTAL 0.3 mg/dL (0.2-1.0); CALCIUM 9.2 mg/dL (8.5-10.1); CREATININE 1.01 mg/dL (0.55-1.02); TOTAL PROTEIN 7.1 g/dL (6.4-8.2)
[2019-02-13 14:00] LABS: PROTEIN/CREATININE RATIO,URINE < 321 (0-200); TOTAL PROTEIN,URINE RANDOM < 5 mg/dL (0-12)
== END | disposition home or self-care (01) ==
LOC: LAB 11:05
PROVIDERS: ATTEND Physician Assistant
DX: Z51.11 Encounter for antineoplastic chemotherapy (principal); C56.9 Malignant neoplasm of unspecified ovary; E83.42 Hypomagnesemia
CPT/HCPCS: 36415; 80053; 81003; 82570; 83735; 84156; 85025; 86304

== ENCOUNTER → 2019-03-06 | Outpatient (CLI) | payer SELFPAY ==
[2019-03-06 11:32] LABS: MEAN CORPUSCULAR HEMOGLOBIN 34.8 pg (27.0-34.8); MEAN CORPUSCULAR HGB CONC 33.6 g/dL (32.4-35.8); MEAN CORPUSCULAR VOLUME 103.5 fL (80-100); MEAN PLATELET VOLUME 8.3 fL (7.4-10.4); PLATELET COUNT 340 x10^3/uL (130-400); RED BLOOD COUNT 4.03 x10^6/uL (3.82-5.3); RED CELL DISTRIBUTION WIDTH 14.5 % (9.6-15.2)
[2019-03-06 11:42] LABS: ALANINE AMINOTRANSFERASE 38 U/L (12-78); ALBUMIN 3.9 g/dL (3.4-5.0); ANION GAP 5 mmol/L (5-15); CALCIUM 8.6 mg/dL (8.5-10.1); CHLORIDE 104 mmol/L (98-107); CREATININE 0.93 mg/dL (0.55-1.02)
[2019-03-06 11:45] LABS: ALKALINE PHOSPHATASE 60 U/L (45-117); BILIRUBIN,TOTAL 0.4 mg/dL (0.2-1.0)
[2019-03-06 11:49] LABS: PROTEIN/CREATININE RATIO,URINE < 215 (0-200); TOTAL PROTEIN,URINE RANDOM < 5 mg/dL (0-12)
[2019-03-06 11:51] LABS: BASOPHILS # (AUTO) 0.01 x10^3/uL (0-0.1); BASOPHILS % (AUTO) 0 % (0-1); EOSINOPHILS # (AUTO) 2.09 x10^3/uL (0-0.4); EOSINOPHILS % (AUTO) 20 % (1-7); LYMPHOCYTES # (AUTO) 2.73 x10^3/uL (1-3.4); LYMPHOCYTES % (AUTO) 26 % (22-44); MD SCAN; MONOCYTES # (AUTO) 0.73 x10^3/uL (0.2-0.8); MONOCYTES % (AUTO) 7 % (2-9); NEUTROPHILS # (AUTO) 4.96 x10^3/uL (1.8-6.8); NEUTROPHILS % (AUTO) 47 % (42-75)
== END | disposition home or self-care (01) ==
LOC: LAB 11:12
PROVIDERS: ATTEND Physician Assistant
DX: Z51.11 Encounter for antineoplastic chemotherapy (principal); E83.42 Hypomagnesemia; C56.9 Malignant neoplasm of unspecified ovary
CPT/HCPCS: 36415; 80053; 82570; 83735; 84156; 85025; 86304

== ENCOUNTER → 2019-03-27 | Outpatient (CLI) | payer OTHER ==
[2019-03-27 11:42] LABS: BASOPHILS # (AUTO) 0.02 x10^3/uL (0-0.1); BASOPHILS % (AUTO) 0 % (0-1); EOSINOPHILS # (AUTO) 1.05 x10^3/uL (0-0.4); EOSINOPHILS % (AUTO) 13 % (1-7); LYMPHOCYTES # (AUTO) 2.41 x10^3/uL (1-3.4); LYMPHOCYTES % (AUTO) 29 % (22-44); MD NO; MEAN CORPUSCULAR HGB CONC 32.9 g/dL (32.4-35.8); MEAN CORPUSCULAR VOLUME 103.3 fL (80-100); MEAN PLATELET VOLUME 8.3 fL (7.4-10.4); MONOCYTES # (AUTO) 0.79 x10^3/uL (0.2-0.8); MONOCYTES % (AUTO) 9 % (2-9); NEUTROPHILS # (AUTO) 4.14 x10^3/uL (1.8-6.8); NEUTROPHILS % (AUTO) 49 % (42-75); PLATELET COUNT 337 x10^3/uL (130-400); RED BLOOD COUNT 4.04 x10^6/uL (3.82-5.3); RED CELL DISTRIBUTION WIDTH 14.2 % (9.6-15.2)
[2019-03-27 11:46] LABS: MICROSCOPIC NOT IND
[2019-03-27 11:50] LABS: ALBUMIN 3.9 g/dL (3.4-5.0); ANION GAP 6 mmol/L (5-15); CHLORIDE 103 mmol/L (98-107)
[2019-03-27 11:59] LABS: ALANINE AMINOTRANSFERASE 41 U/L (12-78); ALKALINE PHOSPHATASE 57 U/L (45-117); BILIRUBIN,TOTAL 0.4 mg/dL (0.2-1.0); FREE T4 (FREE THYROXINE) 1.31 ng/dL (0.76-1.46); TOTAL PROTEIN 7.1 g/dL (6.4-8.2)
== END | disposition home or self-care (01) ==
LOC: LAB 11:14
PROVIDERS: ATTEND Specialist
DX: Z51.11 Encounter for antineoplastic chemotherapy (principal); C56.9 Malignant neoplasm of unspecified ovary; D72.829 Elevated white blood cell count, unspecified; R97.1 Elevated cancer antigen 125 [CA 125]; E83.42 Hypomagnesemia
CPT/HCPCS: 36415; 80053; 81003; 83735; 84439; 84443; 84481; 85025

== ENCOUNTER → 2019-04-17 | Outpatient (CLI) | payer OTHER ==
[2019-04-17 10:26] LABS: BASOPHILS # (AUTO) 0.03 x10^3/uL (0-0.1); BASOPHILS % (AUTO) 0 % (0-1); EOSINOPHILS # (AUTO) 0.77 x10^3/uL (0-0.4); EOSINOPHILS % (AUTO) 11 % (1-7); LYMPHOCYTES # (AUTO) 2.76 x10^3/uL (1-3.4); LYMPHOCYTES % (AUTO) 41 % (22-44); MD NO; MEAN PLATELET VOLUME 8.5 fL (7.4-10.4); MONOCYTES % (AUTO) 10 % (2-9); NEUTROPHILS # (AUTO) 2.52 x10^3/uL (1.8-6.8); NEUTROPHILS % (AUTO) 37 % (42-75); PLATELET COUNT 384 x10^3/uL (130-400); RED BLOOD COUNT 4.16 x10^6/uL (3.82-5.3)
[2019-04-17 12:26] LABS: ALANINE AMINOTRANSFERASE 38 U/L (12-78); ALBUMIN 4.1 g/dL (3.4-5.0); ANION GAP 5 mmol/L (5-15); CALCIUM 9.3 mg/dL (8.5-10.1); CHLORIDE 105 mmol/L (98-107)
[2019-04-17 12:28] LABS: ALKALINE PHOSPHATASE 60 U/L (45-117); BILIRUBIN,TOTAL 0.2 mg/dL (0.2-1.0); CREATININE 1.01 mg/dL (0.55-1.02); TOTAL PROTEIN 7.5 g/dL (6.4-8.2)
[2019-04-17 12:31] LABS: PROTEIN/CREATININE RATIO,URINE < 289 (0-200); TOTAL PROTEIN,URINE RANDOM < 5 mg/dL (0-12)
== END | disposition home or self-care (01) ==
LOC: LAB 09:54
PROVIDERS: ATTEND Specialist
DX: Z51.11 Encounter for antineoplastic chemotherapy (principal); C56.9 Malignant neoplasm of unspecified ovary; E83.42 Hypomagnesemia
CPT/HCPCS: 36415; 80053; 82570; 83735; 84156; 85025; 86304

== ENCOUNTER 2019-04-25 10:33 | Outpatient (CLI) | payer OTHER | END 2019-04-25 23:59 | disposition home or self-care (01) | LOC: CFH 10:33 | PROVIDERS: ATTEND Registered Nurse Maternal Newborn | DX: M85.89 Other specified disorders of bone density and structure, multiple sites (principal) | CPT/HCPCS: 77080 ==

== ENCOUNTER → 2019-05-01 | Outpatient (CLI) | payer OTHER ==
[2019-05-01 11:39] LABS: MICROSCOPIC NOT IND
[2019-05-01 11:40] LABS: MEAN CORPUSCULAR HEMOGLOBIN 34.5 pg (27.0-34.8); MEAN CORPUSCULAR VOLUME 104.4 fL (80-100); MEAN PLATELET VOLUME 8.4 fL (7.4-10.4); PLATELET COUNT 286 x10^3/uL (130-400); RED CELL DISTRIBUTION WIDTH 13.6 % (9.6-15.2)
[2019-05-01 11:44] LABS: CULTURE INDICATED? NO
[2019-05-01 11:45] LABS: ALBUMIN 4.1 g/dL (3.4-5.0); ANION GAP 4 mmol/L (5-15); CALCIUM 9.4 mg/dL (8.5-10.1); CHLORIDE 105 mmol/L (98-107)
[2019-05-01 11:49] LABS: ALANINE AMINOTRANSFERASE 41 U/L (12-78); ALKALINE PHOSPHATASE 61 U/L (45-117); BILIRUBIN,TOTAL 0.4 mg/dL (0.2-1.0); CREATINE KINASE, TOTAL 424 U/L (26-192); TOTAL PROTEIN 7.6 g/dL (6.4-8.2)
[2019-05-01 11:56] LABS: BASOPHILS # (AUTO) 0.03 x10^3/uL (0-0.1); BASOPHILS % (AUTO) 1 % (0-1); EOSINOPHILS # (AUTO) 0.45 x10^3/uL (0-0.4); EOSINOPHILS % (AUTO) 7 % (1-7); LYMPHOCYTES # (AUTO) 2.59 x10^3/uL (1-3.4); LYMPHOCYTES % (AUTO) 43 % (22-44); MD SCAN; MONOCYTES # (AUTO) 0.61 x10^3/uL (0.2-0.8); MONOCYTES % (AUTO) 10 % (2-9); NEUTROPHILS # (AUTO) 2.36 x10^3/uL (1.8-6.8); NEUTROPHILS % (AUTO) 39 % (42-75)
[2019-05-01 12:31] LABS: HCT (SEDRATE) 42.8 % (34.6-47.8)
== END | disposition home or self-care (01) ==
LOC: LAB 10:44
PROVIDERS: ATTEND Internal Medicine
DX: R76.8 Other specified abnormal immunological findings in serum (principal)
CPT/HCPCS: 36415; 80053; 81003; 82550; 85025; 85651

== ENCOUNTER → 2019-05-08 | Outpatient (CLI) | payer OTHER ==
[2019-05-08 11:05] LABS: MICROSCOPIC NOT IND
[2019-05-08 11:15] LABS: BASOPHILS # (AUTO) 0.03 x10^3/uL (0-0.1); BASOPHILS % (AUTO) 1 % (0-1); EOSINOPHILS # (AUTO) 0.69 x10^3/uL (0-0.4); EOSINOPHILS % (AUTO) 12 % (1-7); LYMPHOCYTES # (AUTO) 2.14 x10^3/uL (1-3.4); LYMPHOCYTES % (AUTO) 37 % (22-44); MD NO; MEAN CORPUSCULAR HEMOGLOBIN 33.9 pg (27.0-34.8); MEAN CORPUSCULAR HGB CONC 32.5 g/dL (32.4-35.8); MEAN CORPUSCULAR VOLUME 104.5 fL (80-100); MEAN PLATELET VOLUME 8.6 fL (7.4-10.4); MONOCYTES # (AUTO) 0.61 x10^3/uL (0.2-0.8); MONOCYTES % (AUTO) 11 % (2-9); NEUTROPHILS # (AUTO) 2.31 x10^3/uL (1.8-6.8); NEUTROPHILS % (AUTO) 40 % (42-75); PLATELET COUNT 288 x10^3/uL (130-400); RED BLOOD COUNT 4.24 x10^6/uL (3.82-5.3); RED CELL DISTRIBUTION WIDTH 13.7 % (9.6-15.2)
[2019-05-08 11:18] LABS: ALANINE AMINOTRANSFERASE 47 U/L (12-78); ALBUMIN 4.1 g/dL (3.4-5.0); ANION GAP 4 mmol/L (5-15); CALCIUM 9.4 mg/dL (8.5-10.1); CHLORIDE 107 mmol/L (98-107); CREATININE 1.03 mg/dL (0.55-1.02)
[2019-05-08 11:19] LABS: TOTAL PROTEIN,URINE RANDOM < 5 mg/dL (0-12)
[2019-05-08 11:21] LABS: ALKALINE PHOSPHATASE 60 U/L (45-117); BILIRUBIN,TOTAL 0.4 mg/dL (0.2-1.0); TOTAL PROTEIN 7.5 g/dL (6.4-8.2)
== END | disposition home or self-care (01) ==
LOC: LAB 10:35
PROVIDERS: ATTEND Registered Nurse Maternal Newborn
DX: Z51.11 Encounter for antineoplastic chemotherapy (principal); C56.9 Malignant neoplasm of unspecified ovary; E83.42 Hypomagnesemia
CPT/HCPCS: 36415; 80053; 81003; 82570; 83735; 84156; 85025; 86304

== ENCOUNTER → 2019-06-04 | Outpatient (CLI) | payer OTHER ==
[2019-06-04 15:08] LABS: MEAN CORPUSCULAR HGB CONC 32.3 g/dL (32.4-35.8); MEAN CORPUSCULAR VOLUME 105.4 fL (80-100); MEAN PLATELET VOLUME 8.3 fL (7.4-10.4); PLATELET COUNT 310 x10^3/uL (130-400); RED BLOOD COUNT 4.01 x10^6/uL (3.82-5.3); RED CELL DISTRIBUTION WIDTH 14.3 % (9.6-15.2)
[2019-06-04 15:18] LABS: ALBUMIN 3.6 g/dL (3.4-5.0); ANION GAP 5 mmol/L (5-15); CHLORIDE 109 mmol/L (98-107)
[2019-06-04 15:25] LABS: ALANINE AMINOTRANSFERASE 40 U/L (12-78); ALKALINE PHOSPHATASE 49 U/L (45-117); BILIRUBIN,TOTAL 0.2 mg/dL (0.2-1.0); TOTAL PROTEIN 6.5 g/dL (6.4-8.2)
[2019-06-04 15:28] LABS: BASOPHILS # (AUTO) 0.03 x10^3/uL (0-0.1); BASOPHILS % (AUTO) 0 % (0-1); EOSINOPHILS # (AUTO) 4.99 x10^3/uL (0-0.4); EOSINOPHILS % (AUTO) 47 % (1-7); LYMPHOCYTES # (AUTO) 2.31 x10^3/uL (1-3.4); LYMPHOCYTES % (AUTO) 22 % (22-44); MD SCAN; MONOCYTES # (AUTO) 0.74 x10^3/uL (0.2-0.8); MONOCYTES % (AUTO) 7 % (2-9); NEUTROPHILS # (AUTO) 2.56 x10^3/uL (1.8-6.8); NEUTROPHILS % (AUTO) 24 % (42-75)
== END | disposition home or self-care (01) ==
LOC: LAB 14:35
PROVIDERS: ATTEND Registered Nurse Maternal Newborn
DX: Z51.11 Encounter for antineoplastic chemotherapy (principal); C56.9 Malignant neoplasm of unspecified ovary; R97.1 Elevated cancer antigen 125 [CA 125]
CPT/HCPCS: 36415; 80053; 83735; 84100; 84156; 84439; 84443; 84481; 85025; 86304

== ENCOUNTER 2019-06-15 08:15 | Outpatient (CLI) | payer OTHER ==
[2019-06-15] MEDS ORDERED: ESOM40CA PO (08:55)
[2019-06-15] MEDS ORDERED: SYMPLEX F PO (08:55)
[2019-06-15] MEDS ORDERED: ASPI1TAB31 PO (08:55)
[2019-06-15] MEDS ORDERED: DIGE1TAB PO (08:55)
[2019-06-15] MEDS ORDERED: BLACK COHOSH PO (08:55)
[2019-06-15] MEDS ORDERED: ADRENAL SUPPLEMENT PO (08:55)
[2019-06-15] MEDS ORDERED: PERICOLACE PO (08:55)
[2019-06-15] MEDS ORDERED: MELA5TAB14 PO (08:55)
[2019-06-15] MEDS ORDERED: MAGN400O7 PO (08:55)
== END 2019-06-15 23:59 | disposition home or self-care (01) ==
LOC: STAR 08:15
PROVIDERS: ATTEND Thoracic Surgery (Cardiothoracic Vascular Surgery)
DX: Z02.9 Encounter for administrative examinations, unspecified (principal)

== ENCOUNTER 2019-06-21 06:09 | Inpatient (IN) | payer OTHER ==
[2019-06-15 08:45] VITALS: BP 108/71
[~2019-06-21] VITALS: Ht 160 cm; Wt 57.9 kg
[~2019-06-21 06:09] MED LIST changes: +ADRENAL SUPPLEMENT PO; +ASPI1TAB31 PO; +BLACK COHOSH PO; +DIGE1TAB PO; +MAGN400O7 PO; +MELA5TAB14 PO; +PERICOLACE PO; +SYMPLEX F PO
[2019-06-21] MEDS ORDERED: LACTATED RINGERS 1,000 ML IV SCH (06:37)
[2019-06-21] MEDS ORDERED: POLY17PO5 PO (07:09)
[2019-06-21] MEDS ORDERED: FENTANYL PF 250 MCG/5ML ONE (07:12)
[2019-06-21] MEDS ORDERED: MIDAZOLAM 1 MG/ML, 2ML ONE (07:12)
[2019-06-21] MEDS ORDERED: SCOPOLAMINE PATCH, 1.5MG PATCH.TD72 TD ONE ×2 (07:19→07:30)
[2019-06-21] MEDS ORDERED: GABAPENTIN 300 MG CAPSULE ONE (07:20)
[2019-06-21] MEDS ORDERED: ACETAMINOPHEN 500 MG TABLET ONE (07:20)
[2019-06-21] MEDS ORDERED: ACETAMINOPHEN 500 MG TABLET PO ONE (07:30)
[2019-06-21] MEDS ORDERED: GABAPENTIN 300 MG CAPSULE PO ONE (07:30)
[2019-06-21] MEDS ORDERED: SUGAMMADEX 200 MG/2 ML IVPush ONE (07:33)
[2019-06-21] MEDS ORDERED: DEXAMETHASONE 4 MG/ML, 1ML ONE (07:33)
[2019-06-21] MEDS ORDERED: PROPOFOL 10 MG/ML, 20ML ONE (07:33)
[2019-06-21] MEDS ORDERED: KETOROLAC 30 MG/1 ML ONE ×2 (07:33→10:36)
[2019-06-21] MEDS ORDERED: CEFAZOLIN 1,000 MG ONE (07:33)
[2019-06-21] MEDS ORDERED: ROCURONIUM 10 MG/ML,10ML ONE (07:33)
[2019-06-21] MEDS ORDERED: ONDANSETRON 2MG/ML, 2ML ONE ×2 (07:33→11:34)
[2019-06-21] MEDS ORDERED: SUCCINYLCHOLINE 20 MG/ML, 10ML ONE (07:33)
[2019-06-21] MEDS ORDERED: HEPARIN 1,000 UNITS/ML, 10ML ONE (08:01)
[2019-06-21] MEDS: LACTATED RINGERS 1,000 ML IV SCH ×2 (10:22→20:12)
[2019-06-21] MEDS ORDERED: PROMETHAZINE 12.5 MG SUPP PR PRN (10:30)
[2019-06-21] MEDS ORDERED: ALBUTEROL SULFATE 2.5 MG/3 ML NPPB PRN ×2 (10:30→11:00)
[2019-06-21] MEDS ORDERED: PROMETHAZINE 25 MG/ML, 1ML IM PRN (10:30)
[2019-06-21] MEDS ORDERED: ONDANSETRON 2MG/ML, 2ML IVPush PRN ×2 (10:30→11:00)
[2019-06-21] MEDS ORDERED: LORazepam 2 MG/ML, 1ML IV PRN (10:30)
[2019-06-21] MEDS ORDERED: KETOROLAC 30 MG/1 ML IV PRN ×2 (10:30→11:00)
[2019-06-21] MEDS ORDERED: PROMETHAZINE 25 MG/ML, 1ML IV PRN ×2 (10:30→11:00)
[2019-06-21] MEDS ORDERED: METOCLOPRAMIDE 5 MG/ML, 2ML IV PRN ×2 (10:30→11:00)
[2019-06-21] MEDS ORDERED: ENALAPRILAT 1.25 MG/ML, 2ML IV PRN (10:30)
[2019-06-21] MEDS ORDERED: DIPHENHYDRAMINE 50 MG/ML, 1ML IV PRN (10:30)
[2019-06-21] MEDS ORDERED: LABETALOL 5MG/ML, 20ML IV PRN ×2 (10:30→11:00)
[2019-06-21] MEDS ORDERED: hydrALAzine 20 MG/ML, 1ML IV PRN ×3 (10:30→11:00)
[2019-06-21] MEDS ORDERED: HYDROmorphone 2 MG/ML, 1ML ONE (10:36)
[2019-06-21] MEDS ORDERED: FENTANYL PF 100 MCG/2ML ONE (10:36)
[2019-06-21] MEDS ORDERED: LORazepam 2 MG/ML, 1ML ONE (10:37)
[2019-06-21] MEDS: FENTANYL PF 100 MCG/2ML IV PRN ×4 (10:42→11:56)
[2019-06-21] MEDS: HYDROmorphone 1 MG/ML, 1ML INJ IV PRN ×4 (10:48→11:42)
[2019-06-21] MEDS ORDERED: OXYcodone 5 MG/5 ML ORAL.SOL UDC PO PRN (11:00)
[2019-06-21] MEDS ORDERED: HYDROmorphone PCA 30 MG/30 ML IV PRN (11:00)
[2019-06-21] MEDS ORDERED: MEPERIDINE/PF 25MG/0.5ML IVPush PRN (11:00)
[2019-06-21] MEDS ORDERED: LORazepam 2 MG/ML, 1ML IVPush PRN (11:00)
[2019-06-21] MEDS ORDERED: PROMETHAZINE 25 MG/ML, 1ML ONE (11:50)
[2019-06-21 12:20] VITALS: BP 109/74
[2019-06-21] MEDS: FAMOTIDINE 20 MG/2 ML IV SCH (12:50)
[2019-06-21 13:30] VITALS: BP 103/71
[2019-06-21] MEDS: CEFAZOLIN PMX 1GM/50ML 50 ML IVPB SCH ×2 (16:05→23:16)
[2019-06-21] MEDS: LORazepam 2 MG/ML, 1ML IV PRN (17:14)
[2019-06-21 19:39] VITALS: BP 111/76
[2019-06-21] MEDS: KETOROLAC 30 MG/1 ML IV PRN (20:42)
[2019-06-22] MEDS: LORazepam 2 MG/ML, 1ML IV PRN ×4 (00:17→18:20)
[2019-06-22] MEDS: FAMOTIDINE 20 MG/2 ML IV SCH ×2 (00:17→11:55)
[2019-06-22 00:25] VITALS: BP 113/80
[2019-06-22 04:28] VITALS: BP 114/81
[2019-06-22] MEDS: LEVOTHYROXINE 75 MCG TABLET PO SCH (05:51)
[2019-06-22] MEDS: LACTATED RINGERS 1,000 ML IV SCH ×2 (05:51→17:00)
[2019-06-22 06:34] VITALS: BP 112/97
[2019-06-22] MEDS: ENOXAPARIN 40 MG/0.4 ML SQ SCH (08:34)
[2019-06-22] MEDS ORDERED: LAMOTRIGINE 25 MG TABLET PO SCH (09:00)
[2019-06-22] MEDS ORDERED: LAMOTRIGINE 100 MG TABLET PO SCH (09:00)
[2019-06-22 12:35] VITALS: BP 125/87
[2019-06-22 20:02] VITALS: BP 111/74
[2019-06-22] MEDS: FAMOTIDINE 20 MG TABLET PO SCH (21:59)
[2019-06-22] MEDS: LAMOTRIGINE 25 MG TABLET PO SCH (22:00)
[2019-06-22] MEDS: LAMOTRIGINE 100 MG TABLET PO SCH (22:00)
[2019-06-23] MEDS: LORazepam 2 MG/ML, 1ML IV PRN (01:57)
[2019-06-23 02:55] VITALS: BP 121/71
[2019-06-23] MEDS: LACTATED RINGERS 1,000 ML IV SCH ×3 (02:55→22:22)
[2019-06-23] MEDS: LEVOTHYROXINE 75 MCG TABLET PO SCH (05:45)
[2019-06-23 08:40] VITALS: BP 119/77
[2019-06-23] MEDS: FAMOTIDINE 20 MG TABLET PO SCH ×2 (09:07→20:45)
[2019-06-23] MEDS: KETOROLAC 30 MG/1 ML IV PRN ×2 (09:07→17:46)
[2019-06-23] MEDS: ENOXAPARIN 40 MG/0.4 ML SQ SCH (09:07)
[2019-06-23] MEDS ORDERED: HYDROmorphone 1 MG/ML, 1ML INJ IV PRN (09:30)
[2019-06-23 12:42] VITALS: BP 115/84
[2019-06-23] MEDS: HYDROmorphone 2MG TABLET PO PRN ×3 (14:12→23:17)
[2019-06-23] MEDS ORDERED: HYDR2TAB29 PO (16:27)
[2019-06-23] MEDS ORDERED: LORA-446 PO (16:28)
[2019-06-23 19:41] VITALS: BP 111/79
[2019-06-23] MEDS: LAMOTRIGINE 100 MG TABLET PO SCH (20:45)
[2019-06-23] MEDS: LAMOTRIGINE 25 MG TABLET PO SCH (20:45)
[2019-06-24 01:57] VITALS: BP 112/75
[2019-06-24] MEDS: LEVOTHYROXINE 75 MCG TABLET PO SCH (05:06)
[2019-06-24] MEDS: HYDROmorphone 2MG TABLET PO PRN (06:06)
[2019-06-24 06:54] VITALS: BP 96/62
[2019-06-24] MEDS: KETOROLAC 30 MG/1 ML IV PRN (07:55)
[2019-06-24] MEDS: LACTATED RINGERS 1,000 ML IV SCH (08:23)
[2019-06-24] MEDS: ENOXAPARIN 40 MG/0.4 ML SQ SCH (08:24)
[2019-06-24] MEDS: FAMOTIDINE 20 MG TABLET PO SCH (08:24)
== END 2019-06-24 17:57 | disposition home or self-care (01) | DRG 337 ==
LOC: OUT 06:09 → ORIP 10:22 → 4NOR 12:09
PROVIDERS: ADMIT Thoracic Surgery (Cardiothoracic Vascular Surgery); ATTEND Thoracic Surgery (Cardiothoracic Vascular Surgery)
PROC: 0WUF0JZ Supplement Abdominal Wall with Synthetic Substitute, Open Approach (ICD-10-PCS; 2019-06-21)
PROC: 0DBW0ZX Excision of Peritoneum, Open Approach, Diagnostic (ICD-10-PCS; 2019-06-21)
PROC: 3E0T3BZ Introduction of Anesthetic Agent into Peripheral Nerves and Plexi, Percutaneous Approach (ICD-10-PCS; 2019-06-21)
PROC: 0DNW0ZZ Release Peritoneum, Open Approach (ICD-10-PCS; principal; 2019-06-21 07:30)
DX: K43.2 Incisional hernia without obstruction or gangrene (principal); K66.0 Peritoneal adhesions (postprocedural) (postinfection); Z85.43 Personal history of malignant neoplasm of ovary; K21.9 Gastro-esophageal reflux disease without esophagitis; E03.9 Hypothyroidism, unspecified; F32.9 Major depressive disorder, single episode, unspecified; Z90.49 Acquired absence of other specified parts of digestive tract; Z90.710 Acquired absence of both cervix and uterus; Z80.3 Family history of malignant neoplasm of breast; Z80.1 Family history of malignant neoplasm of trachea, bronchus and lung; Z82.61 Family history of arthritis; Z82.3 Family history of stroke; Z82.49 Family history of ischemic heart disease and other diseases of the circulatory system; Z82.5 Family history of asthma and other chronic lower respiratory diseases; Z83.49 Family history of other endocrine, nutritional and metabolic diseases
CPT/HCPCS: 36415; J3490; 82565; 88112; 88305; G0378; J0690; J1100; J1170; J1644; J1650; J1885; J2250; J2405; J2550; J2704; J3010; C1781; J0330; J2060; J7120

== ENCOUNTER 2019-07-10 15:14 | Outpatient (CLI) | payer OTHER | END 2019-07-10 23:59 | disposition home or self-care (01) | LOC: LAB 15:14 | PROVIDERS: ATTEND Thoracic Surgery (Cardiothoracic Vascular Surgery) | DX: R30.0 Dysuria (principal) | CPT/HCPCS: 81003 ==

== ENCOUNTER → 2019-10-12 | Outpatient (CLI) | payer OTHER ==
[~2019-10-12] MED LIST changes: +HYDR2TAB29 PO; +LORA-446 PO; +OMEP40CA42 PO; -OMEP40CA6 PO; +POLY17PO5 PO
[2019-10-12 11:03] LABS: FREE T4 (FREE THYROXINE) 1.13 ng/dL (0.76-1.46)
== END | disposition home or self-care (01) ==
LOC: LAB 08:53
PROVIDERS: ATTEND Internal Medicine Endocrinology, Diabetes & Metabolism
DX: C56.9 Malignant neoplasm of unspecified ovary (principal); E03.9 Hypothyroidism, unspecified
CPT/HCPCS: 36415; 84439; 84443; 84481; 86304

== ENCOUNTER → 2019-10-26 | Outpatient (CLI) | payer OTHER | END | disposition home or self-care (01) | LOC: CFH 14:41 | PROVIDERS: ATTEND Specialist | DX: Z12.31 Encounter for screening mammogram for malignant neoplasm of breast (principal); Z85.43 Personal history of malignant neoplasm of ovary | CPT/HCPCS: 77063; 77067 ==

== ENCOUNTER → 2019-10-27 | Outpatient (CLI) | payer OTHER ==
[2019-10-27 11:20] LABS: BASOPHILS # (AUTO) 0.06 x10^3/uL (0-0.1); BASOPHILS % (AUTO) 1 % (0-1); EOSINOPHILS # (AUTO) 0.17 x10^3/uL (0-0.4); EOSINOPHILS % (AUTO) 2 % (1-7); LYMPHOCYTES # (AUTO) 2.45 x10^3/uL (1-3.4); LYMPHOCYTES % (AUTO) 28 % (22-44); MD NO; MEAN CORPUSCULAR HEMOGLOBIN 33.9 pg (27.0-34.8); MEAN CORPUSCULAR HGB CONC 32.2 g/dL (32.4-35.8); MEAN CORPUSCULAR VOLUME 105.3 fL (80-100); MEAN PLATELET VOLUME 9.3 fL (7.4-10.4); MICROSCOPIC NOT IND; MONOCYTES # (AUTO) 0.82 x10^3/uL (0.2-0.8); MONOCYTES % (AUTO) 9 % (2-9); NEUTROPHILS # (AUTO) 5.36 x10^3/uL (1.8-6.8); NEUTROPHILS % (AUTO) 61 % (42-75); PLATELET COUNT 308 x10^3/uL (130-400); RED BLOOD COUNT 4.07 x10^6/uL (3.82-5.3); RED CELL DISTRIBUTION WIDTH 14.2 % (9.6-15.2)
[2019-10-27 11:23] LABS: CULTURE INDICATED? NO
[2019-10-27 11:24] LABS: HCT (SEDRATE) 42.8 % (34.6-47.8)
[2019-10-27 11:32] LABS: ALANINE AMINOTRANSFERASE 30 U/L (12-78); ALBUMIN 4.1 g/dL (3.4-5.0); ANION GAP 6 mmol/L (5-15); C-REACTIVE PROTEIN, QUANT 0.05 mg/dL (0.02-0.49); CALCIUM 9.8 mg/dL (8.5-10.1); CHLORIDE 107 mmol/L (98-107); CREATININE 0.97 mg/dL (0.55-1.02)
[2019-10-27 11:34] LABS: ALKALINE PHOSPHATASE 77 U/L (45-117); BILIRUBIN,TOTAL 0.4 mg/dL (0.2-1.0); CREATINE KINASE, TOTAL 208 U/L (26-192); TOTAL PROTEIN 7.5 g/dL (6.4-8.2)
== END | disposition home or self-care (01) ==
LOC: LAB 10:52
PROVIDERS: ATTEND Internal Medicine
DX: R76.0 Raised antibody titer (principal); M79.18 Myalgia, other site; M25.50 Pain in unspecified joint
CPT/HCPCS: 36415; 80053; 81003; 82085; 82550; 82570; 84156; 85025; 85651; 86140; 86160

== ENCOUNTER → 2019-11-01 | Outpatient (CLI) | payer OTHER ==
[~2019-11-01] MED LIST changes: +OMNIPAQUE 350 MG/ML, 100ML BOTTLE ONE
== END | disposition home or self-care (01) ==
LOC: CFH 14:37
PROVIDERS: ATTEND Specialist
DX: K44.9 Diaphragmatic hernia without obstruction or gangrene (principal); M43.07 Spondylolysis, lumbosacral region; C56.9 Malignant neoplasm of unspecified ovary; R97.1 Elevated cancer antigen 125 [CA 125]; K76.89 Other specified diseases of liver
CPT/HCPCS: 71260; 74177; Q9967

== ENCOUNTER 2019-11-23 13:33 | Outpatient (CLI) | payer OTHER ==
[~2019-11-23 13:33] MED LIST changes: -OMNIPAQUE 350 MG/ML, 100ML BOTTLE ONE
== END 2019-11-23 23:59 | disposition home or self-care (01) ==
LOC: CVU 13:33
PROVIDERS: ATTEND Internal Medicine
DX: I05.9 Rheumatic mitral valve disease, unspecified (principal); Z85.43 Personal history of malignant neoplasm of ovary
CPT/HCPCS: 93306; 93356

== ENCOUNTER 2019-11-27 09:02 | Outpatient (CLI) | payer OTHER ==
[2019-11-27 09:26] LABS: BASOPHILS # (AUTO) 0.01 x10^3/uL (0-0.1); BASOPHILS % (AUTO) 0 % (0-1); EOSINOPHILS # (AUTO) 0.19 x10^3/uL (0-0.4); EOSINOPHILS % (AUTO) 4 % (1-7); LYMPHOCYTES # (AUTO) 1.65 x10^3/uL (1-3.4); LYMPHOCYTES % (AUTO) 31 % (22-44); MD NO; MEAN CORPUSCULAR HEMOGLOBIN 33.3 pg (27.0-34.8); MEAN CORPUSCULAR HGB CONC 32.8 g/dL (32.4-35.8); MEAN CORPUSCULAR VOLUME 101.7 fL (80-100); MEAN PLATELET VOLUME 8.6 fL (7.4-10.4); MONOCYTES # (AUTO) 0.55 x10^3/uL (0.2-0.8); MONOCYTES % (AUTO) 10 % (2-9); NEUTROPHILS # (AUTO) 2.94 x10^3/uL (1.8-6.8); NEUTROPHILS % (AUTO) 55 % (42-75); PLATELET COUNT 312 x10^3/uL (130-400); RED BLOOD COUNT 4.03 x10^6/uL (3.82-5.3); RED CELL DISTRIBUTION WIDTH 13.9 % (9.6-15.2)
[2019-11-27 09:27] LABS: ALANINE AMINOTRANSFERASE 28 U/L (12-78); ALBUMIN 3.8 g/dL (3.4-5.0); ANION GAP 8 mmol/L (5-15); CHLORIDE 105 mmol/L (98-107)
[2019-11-27 09:29] LABS: ALKALINE PHOSPHATASE 74 U/L (45-117); BILIRUBIN,TOTAL 0.5 mg/dL (0.2-1.0); TOTAL PROTEIN 6.8 g/dL (6.4-8.2)
== END 2019-11-27 23:59 | disposition home or self-care (01) ==
LOC: LAB 09:02
PROVIDERS: ATTEND Nurse Practitioner Acute Care
DX: C56.9 Malignant neoplasm of unspecified ovary (principal)
CPT/HCPCS: 36415; 80053; 85025; 86304

== ENCOUNTER → 2019-12-18 | Outpatient (CLI) | payer OTHER ==
[2019-12-18 11:28] LABS: FREE T4 (FREE THYROXINE) 1.49 ng/dL (0.76-1.46)
== END | disposition home or self-care (01) ==
LOC: LAB 10:56
PROVIDERS: ATTEND Internal Medicine Endocrinology, Diabetes & Metabolism
DX: E03.9 Hypothyroidism, unspecified (principal)
CPT/HCPCS: 36415; 84439; 84443; 84481

== ENCOUNTER 2020-01-11 22:25 | Inpatient (IN) | payer OTHER ==
[~2020-01-11] VITALS: Ht 160 cm; Wt 56.5 kg
--- NOTE | 2020-01-11 23:15 | NUR ---
URINE COLLECTED AND SENT TO LAB.
[2020-01-11 23:27] LABS: MICROSCOPIC AUTO
[2020-01-11 23:28] LABS: CULTURE INDICATED? NO
[2020-01-11] MEDS ORDERED: ONDANSETRON 2MG/ML, 2ML IVPush ONE (23:30)
[2020-01-11] MEDS ORDERED: SODIUM CHLORIDE FLUSH 10ML SYR IVF ONE (23:30)
[2020-01-11 23:31] LABS: BASOPHILS # (AUTO) 0.04 x10^3/uL (0-0.1); BASOPHILS % (AUTO) 1 % (0-1); EOSINOPHILS # (AUTO) 0.04 x10^3/uL (0-0.4); EOSINOPHILS % (AUTO) 1 % (1-7); LYMPHOCYTES # (AUTO) 1.69 x10^3/uL (1-3.4); LYMPHOCYTES % (AUTO) 20 % (22-44); MD NO; MEAN CORPUSCULAR HEMOGLOBIN 34.1 pg (27.0-34.8); MEAN CORPUSCULAR HGB CONC 33.7 g/dL (32.4-35.8); MEAN PLATELET VOLUME 8.8 fL (7.4-10.4); MONOCYTES % (AUTO) 8 % (2-9); NEUTROPHILS # (AUTO) 5.92 x10^3/uL (1.8-6.8); NEUTROPHILS % (AUTO) 71 % (42-75); PLATELET COUNT 268 x10^3/uL (130-400); RED BLOOD COUNT 4.32 x10^6/uL (3.82-5.3); RED CELL DISTRIBUTION WIDTH 14.3 % (9.6-15.2)
[2020-01-11] MEDS ORDERED: HYDROmorphone 1 MG/ML, 1ML INJ ONE (23:32)
[2020-01-11] MEDS ORDERED: ONDANSETRON 2MG/ML, 2ML ONE (23:32)
[2020-01-11] MEDS: HYDROmorphone 1 MG/ML, 1ML INJ IVPush PRN (23:33)
[2020-01-11 23:40] LABS: ALANINE AMINOTRANSFERASE 26 U/L (12-78); ALBUMIN 4.2 g/dL (3.4-5.0); ANION GAP 3 mmol/L (5-15); CALCIUM 9.6 mg/dL (8.5-10.1); CHLORIDE 107 mmol/L (98-107)
[2020-01-11 23:43] LABS: ALKALINE PHOSPHATASE 85 U/L (45-117); BILIRUBIN,TOTAL 0.6 mg/dL (0.2-1.0); CREATININE 1.16 mg/dL (0.55-1.02); TOTAL PROTEIN 7.5 g/dL (6.4-8.2)
--- NOTE | 2020-01-11 23:43 | NUR ---
IV START. LABS DRAWN. MEDS ADMIN PER MAR. XRAY COMPLETE.
--- NOTE | 2020-01-11 23:51 | NUR ---
ALL RESULTS ARE BACK AT THIS TIME. CHART UP FOR RECHECK.
[2020-01-12] MEDS ORDERED: [UNRECOGNIZED DRUG - CODE] PO (00:10)
--- NOTE | 2020-01-12 00:10 | NUR ---
REPORT GIVEN TO WILD [facility]OVES
--- NOTE | 2020-01-12 00:11 | NUR ---
MD AT BEDSIDE TO UPDATE PT ON POC.
--- NOTE | 2020-01-12 00:18 | NUR ---
RPT RECEIVED FROM GERMAIN PAYTON. ASSUMED CARE OF PT.
--- NOTE | 2020-01-12 00:27 | NUR ---
DR. CRISTI ESPINAL.
[2020-01-12] MEDS ORDERED: POTASSIUM CHLORIDE 10 MEQ in SODIUM CHLORIDE 0.9% 1,000 ML IV ONE (00:30)
[2020-01-12] MEDS ORDERED: METOCLOPRAMIDE 5 MG/ML, 2ML IVPush ONE (00:30)
[2020-01-12] MEDS ORDERED: DIPHENHYDRAMINE 50 MG/ML, 1ML IVPush ONE (00:30)
[2020-01-12] MEDS ORDERED: DIPHENHYDRAMINE 50 MG/ML, 1ML ONE (00:56)
[2020-01-12] MEDS ORDERED: METOCLOPRAMIDE 5 MG/ML, 2ML ONE (00:56)
[2020-01-12] MEDS ORDERED: HYDROmorphone 1 MG/ML, 1ML INJ ONE (01:13)
[2020-01-12] MEDS: HYDROmorphone 1 MG/ML, 1ML INJ IVPush PRN (01:19)
--- NOTE | 2020-01-12 01:35 | NUR ---
PT INFORMED OF NPO. SHE VERBALIZED UNDERSTANDING. Addendum: 01/12/20 at 0136 by TYRELO TASK RN:
--- NOTE | 2020-01-12 01:36 | NUR ---
TASK RN:REPORT TO GERMAIN SAMSON
[2020-01-12 01:49] VITALS: BP 109/68
[2020-01-12] MEDS ORDERED: ACETAMINOPHEN 325 MG TABLET PO PRN (03:30)
[2020-01-12] MEDS ORDERED: ONDANSETRON 2MG/ML, 2ML IVPush PRN (03:30)
[2020-01-12] MEDS ORDERED: KETOROLAC 30 MG/1 ML IVPush PRN (03:30)
[2020-01-12] MEDS ORDERED: morphine SULFATE 10 MG/ML, 1ML IVPush PRN (03:30)
[2020-01-12] MEDS ORDERED: DIPHENHYDRAMINE 50 MG/ML, 1ML IVPush PRN (04:00)
[2020-01-12] MEDS: D5%-0.45NACL+KCL 20MEQ 1,000 ML IV SCH ×2 (04:49→15:40)
[2020-01-12 06:50] VITALS: BP 95/58
[2020-01-12 13:51] VITALS: BP 96/66
[2020-01-12 18:05] VITALS: BP 107/57
[2020-01-13] MEDS: D5%-0.45NACL+KCL 20MEQ 1,000 ML IV SCH ×2 (01:00→11:00)
[2020-01-13 02:43] VITALS: BP 95/56
[2020-01-13 13:33] VITALS: BP 101/66
== END 2020-01-13 14:35 | disposition home or self-care (01) | DRG 390 ==
LOC: ED 01-12 00:31 → EDIP 01-12 00:58 → 3N 01-12 01:47 → 4NW 01-12 18:10
PROVIDERS: ADMIT Obstetrics & Gynecology; ATTEND Obstetrics & Gynecology
DX: K56.609 Unspecified intestinal obstruction, unspecified as to partial versus complete obstruction (principal); E03.9 Hypothyroidism, unspecified; K56.2 Volvulus; K56.7 Ileus, unspecified; F41.1 Generalized anxiety disorder; Z85.43 Personal history of malignant neoplasm of ovary; K21.9 Gastro-esophageal reflux disease without esophagitis; R10.814 Left lower quadrant abdominal tenderness; Z82.49 Family history of ischemic heart disease and other diseases of the circulatory system
CPT/HCPCS: 36415; 74021; 74177; 80053; 81001; 83690; 85025; 99285; G0378; J1170; J1885; J2405; J3480; J1200; J2765; J7030

== ENCOUNTER → 2020-03-28 | Outpatient (CLI) | payer OTHER ==
[~2020-03-28] MED LIST changes: +[UNRECOGNIZED DRUG - CODE] PO
== END | disposition home or self-care (01) ==
LOC: CFH 07:51
PROVIDERS: ATTEND Family Medicine
DX: M47.812 Spondylosis without myelopathy or radiculopathy, cervical region (principal); M48.02 Spinal stenosis, cervical region
CPT/HCPCS: 72050

== ENCOUNTER → 2020-06-07 | Outpatient (CLI) | payer OTHER ==
[~2020-06-07] MED LIST changes: +OMNIPAQUE 350 MG/ML, 100ML BOTTLE ONE
== END | disposition home or self-care (01) ==
LOC: CFH 13:11
PROVIDERS: ATTEND Obstetrics & Gynecology
DX: C56.9 Malignant neoplasm of unspecified ovary (principal); M51.37 Other intervertebral disc degeneration, lumbosacral region; M43.17 Spondylolisthesis, lumbosacral region; R97.1 Elevated cancer antigen 125 [CA 125]; N76.1 Subacute and chronic vaginitis; R10.9 Unspecified abdominal pain
CPT/HCPCS: 71260; 74177; Q9967

== ENCOUNTER → 2020-12-04 | Outpatient (CLI) | payer OTHER ==
[~2020-12-04] MED LIST changes: +LIDOCAINE-MPF 1%, 5ML ONE; -OMNIPAQUE 350 MG/ML, 100ML BOTTLE ONE
== END | disposition home or self-care (01) ==
LOC: RAD 11:21
PROVIDERS: ATTEND Specialist
DX: C56.9 Malignant neoplasm of unspecified ovary (principal); I82.C11 Acute embolism and thrombosis of right internal jugular vein; R97.1 Elevated cancer antigen 125 [CA 125]; K56.690 Other partial intestinal obstruction; D72.829 Elevated white blood cell count, unspecified; K21.9 Gastro-esophageal reflux disease without esophagitis
CPT/HCPCS: 76536; J1642

== ENCOUNTER 2021-01-02 11:10 | Outpatient (CLI) | payer OTHER ==
[~2021-01-02 11:10] MED LIST changes: -LIDOCAINE-MPF 1%, 5ML ONE; -OXYC-307 PO; +OXYC-380 PO
== END 2021-01-02 23:59 | disposition home or self-care (01) ==
LOC: CFH 11:10
PROVIDERS: ATTEND Obstetrics & Gynecology Female Pelvic Medicine and Reconstructive Surgery
DX: Z12.31 Encounter for screening mammogram for malignant neoplasm of breast (principal)
CPT/HCPCS: 77063; 77067